=== PATIENT | male | born 1950 | race African-American/Black ===

== ENCOUNTER 2020-03-07 22:31 | Inpatient (IN) | payer MEDICARE, MEDICAID ==
[~2020-03-07 22:31] MED LIST: Iopamidol 370 76% 100 ML VIAL ONE
[2020-03-07] MEDS ORDERED: Naloxone HCl 0.4 mg/ml Vial ONE (22:41)
[2020-03-07] MEDS ORDERED: Lidocaine 1% w/Epinephrine 1:100K 20 ML VIAL ONE (22:56)
[2020-03-07 22:58] LABS: #Basophils 0.1 thou/uL (0.0-0.2); #Eosinphils 0.1 thou/uL (0.0-0.7); #Lymphocytes 3.7 thou/uL (1.20-3.40); #Monocytes 1.4 thou/uL (0.11-0.59); %Eosinophils 1.1 % (0.0-10.0); %Lymphocytes 35.9 % (21.0-51.0); %Monocytes 13.5 % (0.0-10.0); %Neutrophils 48.5 % (42.0-75.0); Hemoglobin 11.5 g/dL (14.0-18.0); Mean Corpuscular HGB CONC 31.3 g/dL (32.0-36.0); Mean Corpuscular Hemoglobin 31.6 pg (27.0-31.0); Mean Platelet Volume 8.2 fL (7.4-10.4); Platelet Count 156 thou/uL (130-400); RBC Distribution Width 13.3 % (11.5-14.5); Red Blood Cell (RBC) Count 3.65 mill/uL (4.70-6.10); White Blood Cell (WBC) Count 10.3 thou/uL (4.8-10.8)
[2020-03-07 23:07] LABS: Actual Bicarbonate (HCO3a) 27.9 mEq/L (22-28); Analyzer IN Cardio ER; Base Excess (BEa) -1.2 mEq/L (-2.0 to +3.0); Carboxyhemoglobin (COHb) 1.7 gm% (0.0-3.0); Hemoglobin (Hb) 11.3 g/dL (14.0-18.0); O2 Tension (PaO2), arterial 60.6 mmHg (> 80.0)
[2020-03-07 23:26] LABS: ALT (SGPT) 107 U/L (8-55); AST (SGOT) 108 U/L (5-34); Albumin 3.4 g/dL (3.4-4.8); Alkaline Phosphatase 122 U/L (40-110); Anion Gap 24 mmol/L (10-20); BUN (Urea Nitrogen) 17 mg/dL (8.4-25.7); Bilirubin, Total 0.4 mg/dL (0.2-1.2); CK (CPK) 290 U/L (30-200); Calc. Creatinine Clearance 0 mL/min (70-130); Carbon Dioxide 19 mmol/L (23-31); Chloride 103 mmol/L (98-107); Estimated GFR-MDRD Greater than 90; Globulin 3.2 g/dL (2.4-3.5); Glucose 144 mg/dL (80-115); Potassium 3.7 mmol/L (3.5-5.1); Protein, Total 6.6 g/dL (5.8-8.1); Sodium 142 mmol/L (136-145)
[2020-03-07] MEDS ORDERED: Norepinephrine 8 MG/0.9% NS 250 ML ONE (23:37)
[2020-03-07] MEDS ORDERED: Piperacillin/Tazobactam 3.375 GM VIAL ONE (23:37)
[2020-03-07] MEDS ORDERED: Vancomycin 1.5 GRAM/300 ML BAG 1.5 GM in Premix Bag 1 BAG IVPB SCH (23:59)
[2020-03-08 00:47] LABS: Bicarbonate (HCO3v) 23.3 mmol/L (22.0-28.0); CO2 Tension (PvCO2) 40.9 mmHg (40.0-50.0); Calcium, Ionized 0.88 mmol/L (See Comments:); Chloride 109 mmol/L (98-107); Hemoglobin - Calc 11.6 g/dL (14.0-18.0); Potassium 3.6 mmol/L (3.5-5.1); Sodium 144 mmol/L (138-145); T. Carbon Dioxide 24.6 mmol/L (22.0-28.0); vO2 Saturation-calc 74.7 % (60.0-85.0)
[2020-03-08 02:01] LABS: Lactic Acid 5.1 mmol/L (0.5-2.2)
[2020-03-08 02:14] LABS: SARS-CoV-2 NAA Rapid Test Not Detected (NotDetected)
[2020-03-08] MEDS ORDERED: Electrolyte Replacement Protoc 1 EACH EACH IVPB PRN (02:17)
[2020-03-08] MEDS ORDERED: Norepinephrine 8 MG/0.9% NS 250 ML IVPB PRN (02:17)
--- NOTE | 2020-03-08 02:28 | PDOC.HHP ---
Hospitalist HPI - History of Present Illness Altered mental status History of Present Illness: 69-year-old -[place] gentleman with a history of lung cancer was brought to the emergency department unresponsive, in acute respiratory distress and breathing bagged. Not much history is available at this time. No family members around to give any history. According to the ED physician, EMS was called to his house who found him in respiratory distress with agonal breathing. They started bagging him and brought him to the emergency department. According to the ED physician, patient is no CPR but at this time family wants medical treatment. Chest x-ray and CTA thorax done in the emergency department showed left pneumothorax. Patient was hypotensive and hypothermic. Chest tube was placed and patient put on BiPAP therapy. Warming blanket also placed on him. Blood work showed elevated lactic acid up to 4.0, troponin mildly elevated to 0.06 and elevated liver enzymes. Cause of patient's acute respiratory failure is unknown. CT chest demonstrates significant emphysema. Patient meets criteria for septic shock. He is currently on Levophed drip. He has been given broad-spectrum IV antibiotics. He was more responsive by the time I saw him in the ED. Patient is admitted to ICU for further management Hospitalist ROS - Review of Systems ROS unobtainable: due to mental status Hospitalist History - Past Medical History Heme/Onc: reports: Cancer (Lung) - Past Surgical History Other Surgical History: Unable to obtain - Family History Other Family History: Unable to obtain - Social History Other Social History: Unable to obtain - Exam General Appearance: ill appearing General - other findings: Cachectic Eye: PERRL, anicteric sclera ENT: normocephalic atraumatic, no oropharyngeal lesions ENT - other findings: BiPAP in place Neck: supple Neck - other findings: Engorged neck veins Heart: no murmur Heart - other findings: Tachycardic Respiratory - other findings: Diffuse bilateral crackles, diminished breath sound bilaterally. Gastrointestinal: soft, non-tender, non-distended, normal bowel sounds Extremities: no cyanosis, no edema Skin: tenting Neurological - other findings: Somnolent. He moves both upper extremities spontaneously. Psychiatric: somnolent Hospitalist Results - Labs Result Diagrams: 03/07/20 22:51 03/07/20 22:51 Lab results: WBC 10.3 thou/uL (4.8-10.8) 03/07/20 22:51 Hgb 11.5 g/dL (14.0-18.0) L 03/07/20 22:51 Hct 36.9 % (42.0-52.0) L 03/07/20 22:51 MCV 101.0 fL (78.0-98.0) H 03/07/20 22:51 Plt Count 156 thou/uL (130-400) 03/07/20 22:51 Neutrophils % 48.5 % (42.0-75.0) 03/07/20 22:51 VBG pCO2 40.9 mmHg (40.0-50.0) 03/07/20 23:20 VBG pO2 41.3 mmHg (35.0-45.0) 03/07/20 23:20 Sodium 142 mmol/L (136-145) 03/07/20 22:51 Potassium 3.7 mmol/L (3.5-5.1) 03/07/20 22:51 Chloride 103 mmol/L (98-107) 03/07/20 22:51 Carbon Dioxide 19 mmol/L (23-31) L 03/07/20 22:51 BUN 17 mg/dL (8.4-25.7) 03/07/20 22:51 Creatinine 0.87 mg/dL (0.7-1.3) 03/07/20 22:51 Glucose 144 mg/dL (80-115) H 03/07/20 22:51 Lactic Acid 5.1 mmol/L (0.5-2.2) H* 03/08/20 01:31 Calcium 8.0 mg/dL (7.8-10.44) 03/07/20 22:51 Total Bilirubin 0.4 mg/dL (0.2-1.2) 03/07/20 22:51 AST 108 U/L (5-34) H 03/07/20 22:51 ALT 107 U/L (8-55) H 03/07/20 22:51 Alkaline Phosphatase 122 U/L (40-110) H 03/07/20 22:51 Ammonia 28 umol/L (18-72) 03/08/20 00:49 Creatine Kinase 290 U/L (30-200) H 03/07/20 22:51 CK-MB (CK-2) 5.0 ng/mL (0-6.6) 03/08/20 00:49 Troponin I 0.060 ng/mL (< 0.028) H 03/08/20 00:49 Serum Total Protein 6.6 g/dL (5.8-8.1) 03/07/20 22:51 Albumin 3.4 g/dL (3.4-4.8) 03/07/20 22:51 - Radiology Interpretation CT scan - chest Status: image reviewed by me (Pneumothorax left lung.) Hospitalist H&P A/P - Problem (1) Acute respiratory failure with hypoxia Code(s): J96.01 - ACUTE RESPIRATORY FAILURE WITH HYPOXIA Status: Acute (2) Pneumothorax Code(s): J93.9 - PNEUMOTHORAX, UNSPECIFIED Status: Acute Assessment and Plan: Status post chest tube (3) Septic shock Code(s): A41.9 - SEPSIS, UNSPECIFIED ORGANISM; R65.21 - SEVERE SEPSIS WITH SEPTIC SHOCK Status: Acute Assessment and Plan: Unknown source (4) Lung cancer Code(s): C34.90 - MALIGNANT NEOPLASM OF UNSP PART OF UNSP BRONCHUS OR LUNG Status: Acute (5) Anemia Code(s): D64.9 - ANEMIA, UNSPECIFIED Status: Acute (6) Elevated liver enzymes Code(s): R74.8 - ABNORMAL LEVELS OF OTHER SERUM ENZYMES Status: Acute (7) Cachexia Code(s): R64 - CACHEXIA Status: Acute - Plan Plan: Admit to ICU. Poor prognosis. Patient is no CPR. Continue BiPAP therapy Consult cardiothoracic surgery for chest tube management Consult to pulmonary Scattered bronchodilators IV steroids. Broad-spectrum IV antibiotics-IV cefepime and vancomycin Continue Levophed drip IV hydration Follow blood cultures. Monitor BMP and CBC. Patient may need palliative care consultation along the line. Critical care is time spent was about 56 minutes. Could not obtain advanced directive due to altered mental status and no family member around to talk to.
[2020-03-08] MEDS ORDERED: Sodium Chloride 0.9% 1,000 ML IV SCH (02:30)
[2020-03-08 04:13] LABS: Troponin I 0.045 ng/mL (< 0.028)
[2020-03-08] MEDS: Cefepime 2 GM in Sodium Chloride 0.9% 100 ML IVPB SCH ×2 (04:19→14:11)
--- NOTE | 2020-03-08 07:32 | PDOC.HOSPP ---
- Subjective Encounter Date: 03/08/20 Encounter Time: 07:31 Subjective: responds to name, no appropriate answers to questions - Objective Vital Signs & Weight: Vital Signs (12 hours) Temp Pulse Resp Pulse Ox 03/08/20 06:23 100 03/08/20 05:02 122 H 26 H 100 03/08/20 05:01 123 H 26 H 100 03/08/20 03:51 100 03/08/20 03:04 102 H 25 H 100 03/08/20 03:00 97.9 F Weight Weight 106 lb 4.205 oz Most Recent Monitor Data Heart Rate from ECG 122 NIBP 93/63 NIBP BP-Mean 73 Respiration from ECG 18 SpO2 100 I&O: 03/07/20 03/08/20 03/09/20 06:59 06:59 06:59 Intake Total 329 Output Total 225 Balance 104 Result Diagrams: 03/07/20 22:51 03/07/20 22:51 Hospitalist ROS - Medication Medications: Active Medications Generic Name Dose Route Start Last Admin Trade Name Fcoq PRN Reason Stop Dose Admin Albuterol/Ipratropium 3 ml 03/08/20 07:00 03/08/20 05:01 Ipratropium/Albuterol Sulfate 3 Ml Neb NEB 3 ml [id number] LASHELL Administration Sodium Chloride 1,000 mls @ 75 mls/hr 03/08/20 02:30 03/08/20 06:15 Normal Saline 0.9% IV 1,000 mls .[id number] LASHELL Administration Cefepime HCl 2 gm/ Sodium 100 mls @ 200 mls/hr 03/08/20 03:00 03/08/20 04:19 Chloride IVPB 100 mls 0300,1500 LASHELL Administration - Exam Neck: no JVD Heart: RRR, no murmur Respiratory - other findings: C-tube on left, diffuse rhonchi, decreased BS Gastrointestinal: soft Extremities: no edema Hosp A/P (1) Encephalopathy acute Code(s): G93.40 - ENCEPHALOPATHY, UNSPECIFIED Status: Acute (2) Acute respiratory failure with hypoxia Code(s): J96.01 - ACUTE RESPIRATORY FAILURE WITH HYPOXIA Status: Acute (3) Lung cancer Code(s): C34.90 - MALIGNANT NEOPLASM OF UNSP PART OF UNSP BRONCHUS OR LUNG Status: Chronic Qualifiers: Laterality: unspecified laterality Lung location: unspecified part of lung Qualified Code(s): C34.90 - Malignant neoplasm of unspecified part of unspe cified bronchus or lung (4) Pneumothorax Code(s): J93.9 - PNEUMOTHORAX, UNSPECIFIED Status: Acute Qualifiers: Pneumothorax type: spontaneous, secondary Qualified Code(s): J93.12 - Secondary spontaneous pneumothorax - Plan cont Bipap' cont C-tube status is DNAR cont iv anyibx, cultures pending cont pressor cont brochodilators
[2020-03-08 07:33] LABS: Troponin I 0.049 ng/mL (< 0.028)
--- NOTE | 2020-03-08 07:37 | RAD ---
AP CHEST: Date: 03/07/2020 HISTORY: Difficulty breathing. COPD. No comparison. FINDINGS: There is a left pneumothorax, probably 50% range. There is partial atelectasis of the left mid lung w ith parenchymal opacities secondary to the atelectasis. The right lung appears aerated and clear. Heart size normal. There is a central line with a MediPort type catheter that appears adequately positioned. IMPRESSION: Left pneumothorax. Findings relayed to the emergency room physician at the time of dictation. CODE CR. POS: AGW
--- NOTE | 2020-03-08 07:55 | RAD ---
PORTABLE CHEST: Date: 03/07/2020 HISTORY: Chest tube placement. FINDINGS: Left chest tube has been placed. There has been reexpansion of the left lung with no significant resi dual pneumothorax. There is persistent focal density in the left perihilar region suggesting a mass or infiltrate. Patient has a MediPort catheter in place and there may be known neoplasm in this patient. Recommend c linical correlation. IMPRESSION: Reexpansion of the left lung. Focal density consistent with mass and/or infiltrate in the left perihi lar region. Recommend clinical correlation and follow-up chest CT as indicated. POS: ALICJA
--- NOTE | 2020-03-08 08:21 | CT ---
PRELIMINARY REPORT/[facility]/EMERGENCY AFTER HOURS PROCEDURE: EXAM: CT Head Without Intravenous Contrast. CLINICAL HISTORY: AMS; 62M DIFFICULTY BREATHING, AGONAL BREATHING ON SCENE O2 60%. PER FAMILY DNR IN PLACE BUT NO PAPER WORK AVAILABLE. HX OF CA. COMPARISON: None provided. FINDINGS: BRAIN: No acute intracranial hemorrhage, mass-effect, or midline shift. No CT evidence of acute infarct in a large vascular territory. Nonspecific white matter hypoattenuation suggesting chronic age-related small vessel changes. Atherosclerotic calcifications at the skull base. VENTRICLES: Prominent in size, suggesting age-related involution. SINUSES AND MASTOIDS: Trace thickening/fluid in the mastoid air cells. Minimal paranasal sinus mucosal thickening. IMPRESSION: No acute intracranial abnormality. ELECTRONICALLY SIGNED BY: Kennedy Romero MD Mar 08, 2020 12:48:58 AM CDT This report is intended for review by the ordering physician only, in accordance of law. If you recei ve this report in error, please call [facility] at [phone]. FINAL REPORT EMERGENCY AFTER HOURS CT BRAIN WITHOUT CONTRAST: FINDINGS/IMPRESSION: I agree with the preliminary report given by [facility]. POS: OFF
--- NOTE | 2020-03-08 08:49 | CT ---
PRELIMINARY REPORT/[facility]/EMERGENCY AFTER HOURS PROCEDURE: Receipt of this report by the clinical staff was confirmed with Kuldeep Alfredo MD by Anisha swenson on Mar 08, 2020 01:18:00 CDT. Addendum electronically signed by Anisha swenson on March 08, 2020 1:18:40 AM CDT EXAM: CTA Chest with Intravenous Contrast CLINICAL HISTORY: AMS; 62M DIFFICULTY BREATHING, AGONAL BREATHING ON SCENE O2 60%. PER FAMILY DNR IN PLACE BUT NO PAPERWORK AVAILABLE. HX OF CA. COMPARISON: None provided. FINDINGS: PULMONARY ARTERIES No filling defects in the pulmonary arteries to suggest acute pulmonary embolus, n oting significantly limited evaluation of the segmental and subsegmental branches due to suboptimal peripheral opacification. AORTA No thoracic aortic aneurysm or dissection. Moderate atherosclerotic calcifications. LUNGS Advanced emphysema. Mild scattered patchy airspace disease bilaterally. Moderate left perihilar peribronchial thickening. Right middle and lower lobe 4-8 mm pulmonary nodules. PLEURAL SPACES Small left apical pneumothorax with chest tube in place, which terminates in the poste rosuperior left pleural space medially. HEART AND MEDIASTINUM Normal cardiac size. Extensive coronary artery calcifications. Trace pericardia l fluid. LYMPH NODES No appreciable lymphadenopathy. BONES Mild thoracic spondylosis. CHEST WALL AND UPPER ABDOMEN Diffuse steatosis. Scattered left chest wall subcutaneous emphysema. Rig ht chest wall port catheter in place, terminating at the cavoatrial junction. IMPRESSION: 1. Small left apical pneumothorax with chest tube in place. 2. No evidence of pulmonary embolus. Significantly limited evaluation of the segmental/subsegmental b ranches. 3. Right middle and lower lobe 4-8 mm pulmonary nodules. See final report for nonemergent follow-up r ecommendations. ELECTRONICALLY SIGNED BY: Kennedy Romero MD Mar 08, 2020 1:14:59 AM CDT FINAL REPORT EMERGENCY AFTER HOURS STUDY: CT ANGIOGRAM THORAX WITH CONTRAST: (CTA pulmonary angiogram) DATE: 03/08/2020. TIME: 12:27 AM. HISTORY: 69-year-old male with dyspnea and hypoxemia. TECHNIQUE: IV injection of iodinated contrast. Scan acquisition timing attempted to coincide with iodinated contrast bolus reaching maximal density in pulmonary arteries. 3-D MIP reconstructions. FINDINGS: Several minor disagreements with preliminary report by [facility]. No major disagreement. IMPRESSION: 1) Nondiagnostic for pulmonary thromboembolism because of poor IV contrast timing bolus and scanning relative to pulmonary arteries. 2) Left hilar and perihilar mass extending into adjacent anterior segment of left upper lobe and supe rior segment of left lower lobe: Evidence for left lung cancer. 3) Small infiltrate with bronchiectasis in superior segment of right lower lobe. Exact etiology uncer tain but one possibility is organizing pneumonia. 4) Approximately 1 cm noncalcified irregularly-shaped superior segment right lower lobe pulmonary nod ule, and a spiculated 1.5 cm pulmonary nodule in the right middle lobe. These could be malignant neoplasms or infections. Numerous small tree-in-bud nodularities in the basilar segment left lower lobe suggestive of peribron chiolar inflammatory process. 5) Small left pneumothorax treated with chest tube. 6) Centrilobular emphysema. 7) Spiculated left apical segment upper lobe pulmonary lesion, scar versus malignancy. Transcribed Date/Time: 03/08/2020 9:25 AM
--- NOTE | 2020-03-08 10:16 | CON ---
DATE OF CONSULTATION: HISTORY OF PRESENT ILLNESS: Pepe Casper is a 69-year-old cachectic gentleman who was brought to the ER with respiratory distress. He was found to have a left-sided spontaneous pneumothorax. He normally seeks care at [facility] here locally as Dr. Morataya who takes care of him. He has end-stage COPD, lung cancer that in the past had some kind of surgical intervention. He was hypotensive in the ER, hypothermic with left-sided pneumothorax. A chest tube was inserted. I spoke to his at length. He is a DNR. He states on a good day, he can barely walk even 10 feet without getting short of breath. He is on oxygen 24 hours a day. He is cachectic. PAST MEDICAL HISTORY: COPD, lung cancer, Parkinson disease. PREVIOUS SURGERIES: Unknown, but some kind of surgery on his lung. CHRONIC MEDICATION: His is to bring the medication. REVIEW OF SYSTEMS: Otherwise, 10-point unremarkable. PHYSICAL EXAMINATION: GENERAL: He is awake, alert, responsive, in the ICU. VITAL SIGNS: Saturations 90% on BiPAP, pulse 113, blood pressure 166/97, respiratory rate 18. CHEST: Decreased breath sounds. No wheezing. CARDIAC: Normal S1 and S2. No gallops. ABDOMEN: No masses. LABORATORY DATA: Shows lactic acid 5. White count 10,000, H and H are 11 and 39, platelet count is normal. Chemistry profile shows BUN and creatinine are normal. Liver function elevated, AST 108, ALT 107. ASSESSMENT: 1. Marked cachexia. 2. Chronic obstructive pulmonary disease. 3. Lung cancer. 4. Spontaneous pneumothorax. PLAN: I agree with the DNR status. We are going to discontinue the BiPAP. If he is stable, can transfer to the medical floor. He is a DNR. His is going to bring all his list of medication in his medical care from [facility]. Pulmonary/Critical Care is going to follow. This is a consultation note, 70 minutes, 50% direct patient care. Job ID: [id number]
[2020-03-08] MEDS ORDERED: levETIRAcetam 500 mg/5 ml Oral Solution PO SCH (11:30)
[2020-03-08] MEDS: methylPREDNISolone Sod Succ 40 MG VIAL IVP SCH ×2 (12:22→18:29)
[2020-03-08] MEDS: Famotidine/PF 20 mg/2ml Vial SLOW IVP SCH ×2 (12:22→20:32)
[2020-03-08] MEDS: Vancomycin HCl 500 MG in Sodium Chloride 0.9% 100 ML IVPB SCH (14:12)
[2020-03-08] MEDS: Morphine 4 MG/ML VIAL SLOW IVP PRN (16:10)
[2020-03-08] MEDS: Multivitamins, Adult 10 ML, Folic Acid 1 MG, Thiamine HCl 100 MG in Dextrose 5 %-0.45 %... IV SCH (18:27)
[2020-03-08] MEDS: Mometasone 200 MCG/Formoterol 5 MCG 120 PUFF INHALER INH SCH (18:52)
[2020-03-08] MEDS: levETIRAcetam 500 mg/5 ml Oral Solution PO SCH (20:34)
[2020-03-08] MEDS ORDERED: FLU VACC QS2020-21(65YR UP)/PF 240 MCG/0.7 ML SYRINGE IM ONE (21:00)
[2020-03-08 23:24] LABS: CO2 Tension 71.6 mmHg (35.0-45.0); Puncture Site L RADIAL; pH, Arterial 7.21 (7.35-7.45)
--- NOTE | 2020-03-09 00:17 | CON ---
DATE OF CONSULTATION: HISTORY OF PRESENT ILLNESS: This is 69-year-old brought into the emergency room last night unresponsive with assisted ventilations. He was found to have a left-sided pneumothorax and a chest tube was placed by the emergency room physician with a good result. Past medical history is gleaned primarily from our records as the patient was on BiPAP this morning. 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 At the time of the diagnosis, the patient had poor followup due to being in and out of nursing home in different counties. In any event, he has been undergoing treatment at the local [facility] facility since that time with progression of disease. He has severe COPD with an FEV1 of 32% requiring home oxygen therapy. He is severely dyspneic with minimal activities and has been seen by Palliative Care at [facility]. PHYSICAL EXAMINATION: Today, he is on BiPAP. He has distant breath sounds bilaterally with rhonchi. His chest tube has minimal serous output and has no air leak. IMAGING: His chest x-ray shows resolution of his pneumothorax. PLAN: At this time is to monitor his chest tube for 2 to 3 days and if no air leak is present, we will proceed with removal of the tube. Job ID: [id number]
[2020-03-09] MEDS: methylPREDNISolone Sod Succ 40 MG VIAL IVP SCH ×5 (00:54→23:59)
[2020-03-09] MEDS: Vancomycin HCl 500 MG in Sodium Chloride 0.9% 100 ML IVPB SCH ×2 (01:13→13:48)
[2020-03-09] MEDS: Cefepime 2 GM in Sodium Chloride 0.9% 100 ML IVPB SCH ×2 (02:27→14:39)
[2020-03-09] MEDS: Morphine 4 MG/ML VIAL SLOW IVP PRN ×2 (02:27→17:59)
[2020-03-09 04:13] LABS: Band 25 % (5-11); Hemoglobin 9.9 g/dL (14.0-18.0); Hypochromia SLIGHT = 6-15 cells (100X) (0-5/hpf); Lymphocytes 6 % (21-51); MDiff Complete? YES; Mean Corpuscular HGB CONC 32.5 g/dL (32.0-36.0); Mean Corpuscular Hemoglobin 32.5 pg (27.0-31.0); Mean Corpuscular Volume 99.9 fL (78.0-98.0); Mean Platelet Volume 8.7 fL (7.4-10.4); Metamyelocyte 2 % (0-0); Neutrophil 67 % (42-75); Platelet Count 125 thou/uL (130-400); Platelet Morphology Comment Appears Adequate; Red Blood Cell (RBC) Count 3.04 mill/uL (4.70-6.10)
[2020-03-09 04:23] LABS: ALT (SGPT) 77 U/L (8-55); AST (SGOT) 47 U/L (5-34); Albumin 3.2 g/dL (3.4-4.8); Alkaline Phosphatase 95 U/L (40-110); Anion Gap 12 mmol/L (10-20); BUN (Urea Nitrogen) 11 mg/dL (8.4-25.7); Bilirubin, Total 0.4 mg/dL (0.2-1.2); Calc. Creatinine Clearance 69 mL/min (70-130); Calcium 8.7 mg/dL (7.8-10.44); Carbon Dioxide 29 mmol/L (23-31); Chloride 105 mmol/L (98-107); Estimated GFR-MDRD Greater than 90; Globulin 3.1 g/dL (2.4-3.5); Glucose 171 mg/dL (80-115); Potassium 3.4 mmol/L (3.5-5.1); Protein, Total 6.3 g/dL (5.8-8.1); Sodium 143 mmol/L (136-145)
[2020-03-09] MEDS ORDERED: Potassium Chloride 40 MEQ in Sodium Chloride 0.9% 250 ML 250 ML IVPB SCH (05:30)
[2020-03-09] MEDS: Mometasone 200 MCG/Formoterol 5 MCG 120 PUFF INHALER INH SCH ×2 (07:00→18:34)
--- NOTE | 2020-03-09 07:37 | PRG ---
DATE OF SERVICE: 03/09/2020 The patient is more awake this morning and can follow commands, then chest tube output is minimal serous. He has no air leak with a cough. His chest x-ray is pending. Hopefully, can discontinue his suction and remove his chest tube in the next day or two. Job ID: [id number]
[2020-03-09] MEDS: levETIRAcetam 500 mg/5 ml Oral Solution PO SCH ×2 (09:07→21:25)
[2020-03-09] MEDS: Famotidine/PF 20 mg/2ml Vial SLOW IVP SCH ×2 (09:08→21:25)
--- NOTE | 2020-03-09 09:26 | PRG ---
DATE OF SERVICE: 03/09/2020 SUBJECTIVE: This morning, he is awake, responsive. OBJECTIVE: VITAL SIGNS: Pulse 75, saturations 100% on 2 L, respiratory rate 17, blood pressure 139/92. CHEST: Decreased breath sounds, no wheezing. CARDIAC: Normal S1, S2. ABDOMEN: No masses. LABORATORY DATA: White count is unremarkable. Lytes are normal. His chest x-ray today shows a chest tube, left lung. ASSESSMENT: Pneumothorax, chronic obstructive pulmonary disease, lung cancer end-stage. PLAN: Pulmonary payne, continue supportive care. We can probably transfer out of the ICU. He is a DNR. Job ID: [id number]
--- NOTE | 2020-03-09 09:28 | RAD ---
RADIOGRAPH CHEST 1 VIEW: DATE: 03/09/2020 TIME: 9:10 AM HISTORY: 69-year-old male follow-up pneumothorax COMPARISON: 03/07/2020 FINDINGS: Hyperinflation consistent with COPD. Right-sided implantable vascular access port and left-sided ches t tube are unchanged in position. Left perihilar spiculated mass again noted. Small left apical pneumothorax has become smaller, currently approximately 5-15 % volume. No shift of midline structure s. No cardiomegaly. Interstitial densities at left base. No consolidation. No pulmonary edema. IMPRESSION: 1) mild interval decrease in size of now very small left pneumothorax. 2) emphysema 3) spiculated left perihilar mass for lung cancer.
--- NOTE | 2020-03-09 09:35 | PDOC.HOSPP ---
- Subjective Encounter Date: 03/09/20 Encounter Time: 09:33 Subjective: decreased sob, still O2 dependent - Objective Vital Signs & Weight: Vital Signs (12 hours) Temp Pulse Resp Pulse Ox 03/09/20 08:00 98.3 F 03/09/20 07:00 75 17 100 03/09/20 04:00 98.9 F 03/09/20 00:00 98.6 F Weight Weight 104 lb 7.986 oz Most Recent Monitor Data Heart Rate from ECG 82 NIBP 138/72 NIBP BP-Mean 94 Respiration from ECG 22 SpO2 99 I&O: 03/08/20 03/09/20 03/10/20 06:59 06:59 06:59 Intake Total 329 2040.2 Output Total 225 1625 335 Balance 104 415.2 -335 Result Diagrams: 03/09/20 03:30 03/09/20 03:29 Hospitalist ROS - Medication Medications: Active Medications Generic Name Dose Route Start Last Admin Trade Name Freq PRN Reason Stop Dose Admin Albuterol/Ipratropium 3 ml 03/08/20 11:00 03/09/20 07:00 Ipratropium/Albuterol Sulfate 3 Ml Neb NEB 3 ml [id number] LASHELL Administration Famotidine 20 mg 03/08/20 09:00 03/09/20 09:08 Famotidine/Pf 20 Mg/2ml Vial SLOW IVP 20 mg Q12HR LASHELL Administration Cefepime HCl 2 gm/ Sodium 100 mls @ 200 mls/hr 03/08/20 03:00 03/09/20 02:27 Chloride IVPB 100 mls 0300,1500 LASHELL Administration Vancomycin HCl 500 mg/ Sodium 100 mls @ 100 mls/hr 03/08/20 13:00 03/09/20 01:13 Chloride IVPB 100 mls 0100,1300 LASHELL Administration Multivitamins 10 ml/ Folic 1,011.2 mls @ 75 mls/hr 03/08/20 17:00 03/08/20 18:27 Acid 1 mg/ Thiamine HCl 100 mg IV 1,011.2 mls / Dextrose/Sodium Chloride Q24HR LASHELL Administration Dexmedetomidine HCl 400 mcg/ 100 mls @ 0 mls/hr 03/08/20 16:30 03/08/20 18:28 Sodium Chloride IVPB 100 mls INF LASHELL Administration Protocol Titrate Levetiracetam 500 mg 03/08/20 21:00 03/09/20 09:07 Levetiracetam 500 Mg/5 Ml Oral Solution PO 500 mg BID LASHELL Administration Methylprednisolone Sodium Succinate 40 mg 03/08/20 12:00 03/09/20 05:51 Methylprednisolone Sod Succ 40 Mg Vial IVP 40 mg Q6HR LASHELL Administration Mometasone Furoate/Formoterol Fumar 2 puff 03/08/20 18:30 03/09/20 07:00 Mometasone 200 Mcg/Formoterol 5 Mcg 120 Puff Inhaler INH 2 puff BID-RT LASHELL Administration Morphine Sulfate 4 mg 03/08/20 15:45 03/09/20 02:27 Morphine 4 Mg/Ml Vial SLOW IVP 4 mg Q4H PRN Administration Moderate Pain (4-6) Sodium Chloride 10 ml 03/08/20 09:00 03/09/20 09:08 Flush - Normal Saline 10 Ml Syringe IVF 10 ml Q12HR LASHELL Administration - Exam General Appearance: awake alert Neck: no JVD Heart: RRR, no murmur Respiratory - other findings: decreased BS on R, Decreased BS with rales on L. L chest tube Gastrointestinal: soft, non-tender, normal bowel sounds Extremities: no edema Hosp A/P (1) Encephalopathy acute Code(s): G93.40 - ENCEPHALOPATHY, UNSPECIFIED Status: Acute (2) Acute respiratory failure with hypoxia Code(s): J96.01 - ACUTE RESPIRATORY FAILURE WITH HYPOXIA Status: Acute (3) Lung cancer Code(s): C34.90 - MALIGNANT NEOPLASM OF UNSP PART OF UNSP BRONCHUS OR LUNG Status: Chronic Qualifiers: Laterality: unspecified laterality Lung location: unspecified part of lung Qualified Code(s): C34.90 - Malignant neoplasm of unspecified part of unspecified bronchus or lung (4) Pneumothorax Code(s): J93.9 - PNEUMOTHORAX, UNSPECIFIED Status: Acute Qualifiers: Pneumothorax type: spontaneous, secondary Qualified Code(s): J93.12 - Secondary spontaneous pneumothorax - Plan on NC O2 cont C-tube status is DNAR cont iv anytbx, cultures pending cont pressor prn cont brochodilators
[2020-03-09] MEDS: Vancomycin 1 GM in Premix Bag 1 BAG IVPB SCH (14:36)
--- NOTE | 2020-03-09 15:33 | PDOC.FMACP ---
Advance Care Planning - Problem (1) Palliative care encounter Status: Acute Code(s): Z51.5 - ENCOUNTER FOR PALLIATIVE CARE (2) Anemia Status: Acute Code(s): D64.9 - ANEMIA, UNSPECIFIED (3) Cachexia Status: Acute Code(s): R64 - CACHEXIA (4) Lung cancer Status: Chronic Code(s): C34.90 - MALIGNANT NEOPLASM OF UNSP PART OF UNSP BRONCHUS OR LUNG Qualifiers: Laterality: unspecified laterality Lung location: unspecified part of lung Qualified Code(s): C34.90 - Malignant neoplasm of unspecified part of unspecified bronchus or lung - Note Participants: patient, surrogate decision-maker, palliative care Summary: Revisited Advanced Care Planning. The diagnosis, prognosis and goals of care were discussed. Appropriate forms and documentation to accomplish the goals of care were discussed. All questions were answered. Patient completed the MPOA, original and copy given to the patient, copy placed on the chart for medical records. Confirmed DNAR status and patient previous OOHDNAR. Please also refer to notes in note section from Palliative Care. Time Spent (mins): 20
[2020-03-09] MEDS: Multivitamins, Adult 10 ML, Folic Acid 1 MG, Thiamine HCl 100 MG in Dextrose 5 %-0.45 %... IV SCH (21:48)
[2020-03-10] MEDS: Vancomycin 1 GM in Premix Bag 1 BAG IVPB SCH (02:57)
[2020-03-10] MEDS: Cefepime 2 GM in Sodium Chloride 0.9% 100 ML IVPB SCH (02:57)
[2020-03-10] MEDS: methylPREDNISolone Sod Succ 40 MG VIAL IVP SCH (05:12)
[2020-03-10 05:49] LABS: Band 15 % (5-11); Hemoglobin 9.6 g/dL (14.0-18.0); Lymphocytes 5 % (21-51); MDiff Complete? YES; Mean Corpuscular HGB CONC 32.7 g/dL (32.0-36.0); Mean Corpuscular Hemoglobin 32.2 pg (27.0-31.0); Mean Corpuscular Volume 98.6 fL (78.0-98.0); Mean Platelet Volume 9.2 fL (7.4-10.4); Monocytes 5 % (0-10); Neutrophil 75 % (42-75); Platelet Count 128 thou/uL (130-400); Platelet Morphology Comment Appears Adequate; RBC Distribution Width 13.1 % (11.5-14.5); Red Blood Cell (RBC) Count 2.98 mill/uL (4.70-6.10); White Blood Cell (WBC) Count 11.8 thou/uL (4.8-10.8)
[2020-03-10 05:53] LABS: ALT (SGPT) 66 U/L (8-55); AST (SGOT) 40 U/L (5-34); Albumin 3.2 g/dL (3.4-4.8); Alkaline Phosphatase 92 U/L (40-110); Anion Gap 14 mmol/L (10-20); BUN (Urea Nitrogen) 11 mg/dL (8.4-25.7); Bilirubin, Total 0.4 mg/dL (0.2-1.2); Calc. Creatinine Clearance 65 mL/min (70-130); Calcium 8.9 mg/dL (7.8-10.44); Carbon Dioxide 31 mmol/L (23-31); Chloride 99 mmol/L (98-107); Estimated GFR-MDRD Greater than 90; Glucose 181 mg/dL (80-115); Potassium 3.7 mmol/L (3.5-5.1); Protein, Total 6.2 g/dL (5.8-8.1); Sodium 140 mmol/L (136-145)
--- NOTE | 2020-03-10 07:07 | PRG ---
DATE OF SERVICE: 03/10/2020 Chest tube output was minimal. He has been off suction for 24 hours and chest x-ray this morning is pending. He does have a small bubble here and there with coughing, but at rest, no leakage. We will probably await chest x-ray, but may consider leaving the tube another day. Job ID: [id number]
[2020-03-10] MEDS: Mometasone 200 MCG/Formoterol 5 MCG 120 PUFF INHALER INH SCH ×2 (07:15→18:46)
[2020-03-10] MEDS: levETIRAcetam 500 mg/5 ml Oral Solution PO SCH ×2 (09:01→19:37)
[2020-03-10] MEDS: Famotidine/PF 20 mg/2ml Vial SLOW IVP SCH ×2 (09:01→19:37)
--- NOTE | 2020-03-10 10:37 | PDOC.HOSPP ---
- Subjective Encounter Date: 03/10/20 Encounter Time: 10:32 Subjective: comfortable. still has Chest tube in - Objective Vital Signs & Weight: Vital Signs (12 hours) Temp Pulse Resp BP BP Pulse Ox 03/10/20 09:06 99 03/10/20 07:57 97.7 F 83 20 152/77 H 99 03/10/20 07:17 71 20 100 03/10/20 04:07 100 03/10/20 04:00 98.5 F 82 18 160/78 H 99 03/10/20 00:00 98.2 F 80 18 148/74 H 100 Weight Admit Weight 106 lb Weight 100 lb Most Recent Monitor Data Heart Rate from ECG 89 NIBP 141/79 NIBP BP-Mean 99 Respiration from ECG 18 SpO2 100 I&O: 03/09/20 03/10/20 03/11/20 06:59 06:59 06:59 Intake Total 2040.2 920 Output Total 1625 1645 Balance 415.2 -725 Result Diagrams: 03/10/20 05:13 03/10/20 05:13 Hospitalist ROS - Medication Medications: Active Medications Generic Name Dose Route Start Last Admin Trade Name Freq PRN Reason Stop Dose Admin Albuterol/Ipratropium 3 ml 03/08/20 11:00 03/10/20 07:17 Ipratropium/Albuterol Sulfate 3 Ml Neb NEB 3 ml [id number] LASHELL Administration Famotidine 20 mg 03/08/20 09:00 03/10/20 09:01 Famotidine/Pf 20 Mg/2ml Vial SLOW IVP 20 mg Q12HR LASHELL Administration Multivitamins 10 ml/ Folic 1,011.2 mls @ 75 mls/hr 03/08/20 17:00 03/09/20 21:48 Acid 1 mg/ Thiamine HCl 100 mg IV Not Given / Dextrose/Sodium Chloride Q24HR LASHELL Levetiracetam 500 mg 03/08/20 21:00 03/10/20 09:01 Levetiracetam 500 Mg/5 Ml Oral Solution PO 500 mg BID LASHELL Administration Mometasone Furoate/Formoterol Fumar 2 puff 03/08/20 18:30 03/10/20 07:15 Mometasone 200 Mcg/Formoterol 5 Mcg 120 Puff Inhaler INH 2 puff BID-RT LASHELL Administration Morphine Sulfate 4 mg 03/08/20 15:45 03/09/20 17:59 Morphine 4 Mg/Ml Vial SLOW IVP 4 mg Q4H PRN Administration Moderate Pain (4-6) Sodium Chloride 10 ml 03/08/20 09:00 03/10/20 09:01 Flush - Normal Saline 10 Ml Syringe IVF 10 ml Q12HR LASHELL Administration - Exam General Appearance: awake alert Neck: no JVD Heart: RRR Respiratory - other findings: chest tube on right, decreased BS Gastrointestinal: soft, normal bowel sounds Extremities: no edema Hosp A/P (1) Encephalopathy acute Code(s): G93.40 - ENCEPHALOPATHY, UNSPECIFIED Status: Acute (2) Acute respiratory failure with hypoxia Code(s): J96.01 - ACUTE RESPIRATORY FAILURE WITH HYPOXIA Status: Acute (3) Lung cancer Code(s): C34.90 - MALIGNANT NEOPLASM OF UNSP PART OF UNSP BRONCHUS OR LUNG Status: Chronic Qualifiers: Laterality: unspecified laterality Lung location: unspecified part of lung Qualified Code(s): C34.90 - Malignant neoplasm of unspecified part of uns pecified bronchus or lung (4) Pneumothorax Code(s): J93.9 - PNEUMOTHORAX, UNSPECIFIED Status: Acute Qualifiers: Pneumothorax type: spontaneous, secondary Qualified Code(s): J93.12 - Secondary spontaneous pneumothorax - Plan on NC O2 cont C-tube status is DNAR cont iv anytbx, cultures pending cont pressor prn cont brochodilators CXR pending
--- NOTE | 2020-03-10 10:51 | PRG ---
DATE OF SERVICE: 03/10/2020 SUBJECTIVE: Pepe Casper this morning is a little bit more awake, responsive. OBJECTIVE: VITAL SIGNS: Temperature 97, pulse 80, blood pressure 142/77. CHEST: No wheezing, no crackles. CARDIAC: Normal S1, S2. No gallops. ABDOMEN: No masses. LABORATORY DATA: White blood cell count 1100, H and H 9 and 29, and platelet count is normal. X-ray pending. ASSESSMENT: Spontaneous pneumothorax, metastatic cancer, and cachexia. PLAN: Pulmonary payne, since he is eating, we will switch him over to oral antibiotics. Continue supportive care. PT. Eventually placement. Job ID: [id number]
--- NOTE | 2020-03-10 10:56 | PRG ---
DATE OF SERVICE: 03/10/2020 SUBJECTIVE: Pepe Casper is a 69-year-old gentleman. OBJECTIVE: GENERAL: This morning, he is awake, alert, responsive, sitting upright in bed. VITAL SIGNS: Sats 90% to 99% on 2 L, temperature 97, pulse 80, respirations 20, and blood pressure 150/77. CHEST: No wheezing, no crackles. HEART: Normal S1, S2. No gallops. ABDOMEN: No masses. LABORATORY DATA: White blood cell count 1100, H and H 9 and 29, platelet count is 28. ASSESSMENT: Spontaneous pneumothorax, chronic obstructive pulmonary disease, and lung cancer. PLAN: We will switch him over to oral medication. Hopefully, once the chest tube was removed, he can be discharged to home for comfort care measures. Job ID: [id number]
--- NOTE | 2020-03-10 14:33 | RAD ---
RADIOGRAPH CHEST 1 VIEW: DATE: 03/10/2020 TIME: 4:28 AM This study was canceled, and therefore did not get dictated until it was resubmitted for in the after noon of 03/10/2020 HISTORY: Left-sided pneumothorax COMPARISON: 03/09/2020 FINDINGS: There has been no interval change. IMPRESSION: 1) no interval change. 2) small left pneumothorax. 3) left-sided chest tube remains. 4) spiculated left perihilar mass suspicious for lung cancer.
[2020-03-10] MEDS: Multivitamins, Adult 10 ML, Folic Acid 1 MG, Thiamine HCl 100 MG in Dextrose 5 %-0.45 %... IV SCH (18:11)
[2020-03-10] MEDS: Morphine 4 MG/ML VIAL SLOW IVP PRN (19:36)
[2020-03-11] MEDS: Morphine 4 MG/ML VIAL SLOW IVP PRN ×3 (05:30→15:27)
[2020-03-11 06:54] LABS: ALT (SGPT) 83 U/L (8-55); AST (SGOT) 80 U/L (5-34); Albumin 3.2 g/dL (3.4-4.8); Alkaline Phosphatase 97 U/L (40-110); Anion Gap 10 mmol/L (10-20); BUN (Urea Nitrogen) 10 mg/dL (8.4-25.7); Bilirubin, Total 0.4 mg/dL (0.2-1.2); Calc. Creatinine Clearance 68 mL/min (70-130); Calcium 8.9 mg/dL (7.8-10.44); Carbon Dioxide 35 mmol/L (23-31); Chloride 97 mmol/L (98-107); Estimated GFR-MDRD Greater than 90; Glucose 131 mg/dL (80-115); Potassium 3.3 mmol/L (3.5-5.1); Protein, Total 6.2 g/dL (5.8-8.1); Sodium 139 mmol/L (136-145)
[2020-03-11 07:10] LABS: Hemoglobin 11.4 g/dL (14.0-18.0); Mean Corpuscular HGB CONC 31.6 g/dL (32.0-36.0); Mean Corpuscular Hemoglobin 31.6 pg (27.0-31.0); Mean Platelet Volume 8.8 fL (7.4-10.4); Platelet Count 128 thou/uL (130-400); RBC Distribution Width 13.2 % (11.5-14.5); Red Blood Cell (RBC) Count 3.59 mill/uL (4.70-6.10); White Blood Cell (WBC) Count 8.4 thou/uL (4.8-10.8)
[2020-03-11 07:28] LABS: Band 2 % (5-11); Hypochromia SLIGHT = 6-15 cells (100X) (0-5/hpf); Lymphocytes 14 % (21-51); MDiff Complete? YES; Monocytes 6 % (0-10); Neutrophil 78 % (42-75); Platelet Morphology Comment Appears Decreased; Target Cells SLIGHT = 2-5 cells (100X) (0-1/hpf)
[2020-03-11] MEDS: Mometasone 200 MCG/Formoterol 5 MCG 120 PUFF INHALER INH SCH ×2 (07:40→18:52)
--- NOTE | 2020-03-11 07:54 | RAD ---
CHEST 1 VIEW: Date: 03/11/2020 INDICATION: History of chest tube placement. COMPARISON: Prior exam dated 03/10/2020. FINDINGS: Left-sided thoracostomy tube is unchanged in position. Scarring within the left upper lobe with left suprahilar opacity is stable. Tiny left apical pneumothorax persists. Right lung remains clear. Right chest wall port is unchanged. IMPRESSION: Stable small left apical pneumothorax and left-sided thoracostomy tube. Scar-like opacity of the left suprahilar region is stable. COPD change of the right lung is stable. POS: BH
[2020-03-11] MEDS: predniSONE 20 MG TAB PO SCH (09:25)
[2020-03-11] MEDS: Famotidine/PF 20 mg/2ml Vial SLOW IVP SCH ×2 (09:25→21:30)
[2020-03-11] MEDS: levETIRAcetam 500 mg/5 ml Oral Solution PO SCH ×2 (09:25→21:30)
--- NOTE | 2020-03-11 10:48 | PRG ---
DATE OF SERVICE: 03/11/2020 SUBJECTIVE: Cachectic gentleman. Chest tube in place. Still got some air leak it appears. OBJECTIVE: VITAL SIGNS: Temperature 96, pulse 86, saturations 100%, and blood pressure 120/73. CHEST: Decreased breath sounds, left lung. CARDIAC: Normal S1 and S2. No masses. Spontaneous pneumothorax, metastatic CA. PLAN: Continue present treatment. Hopefully, once the CT is removed, he could be discharged home under hospice care. Job ID: [id number]
--- NOTE | 2020-03-11 12:20 | PRG ---
DATE OF SERVICE: 03/11/2020 SUBJECTIVE: The patient was put back on suction yesterday after a small pneumothorax in the subpulmonic area and apically with associated small air leak. This morning he again demonstrated some air leak on suction when he coughed. His output has been minimal and his chest x-ray really looks about the same as yesterday with no major changes. If the patient is going to be on hospice, consideration could be given to sending him home with a chest tube and Heimlich valve rather than keeping in the hospital until his air leak ceases and he could be followed up as an outpatient or by hospice. Job ID: [id number] MTDD
--- NOTE | 2020-03-11 12:58 | PDOC.HOSPP ---
- Subjective Encounter Date: 03/11/20 Encounter Time: 12:58 Subjective: discomfrt at C-tube site, O/W no C/O - Objective Vital Signs & Weight: Vital Signs (12 hours) Temp Pulse Resp BP Pulse Ox 03/11/20 12:06 97.8 F 80 18 134/83 100 03/11/20 10:13 75 16 97 03/11/20 09:25 100 03/11/20 08:08 96.7 F L 86 121/73 100 03/11/20 07:40 98 03/11/20 07:35 84 16 98 Weight Admit Weight 106 lb Weight 99 lb 10.383 oz Most Recent Monitor Data Heart Rate from ECG 89 NIBP 141/79 NIBP BP-Mean 99 Respiration from ECG 18 SpO2 100 I&O: 03/10/20 03/11/20 03/12/20 06:59 06:59 06:59 Intake Total 920 1650 Output Total 1645 1100 Balance -725 550 Result Diagrams: 03/11/20 05:30 03/11/20 05:45 Hospitalist ROS - Medication Medications: Active Medications Generic Name Dose Route Start Last Admin Trade Name Freq PRN Reason Stop Dose Admin Albuterol/Ipratropium 3 ml 03/08/20 11:00 03/11/20 10:13 Ipratropium/Albuterol Sulfate 3 Ml Neb NEB 3 ml [id number] LASHELL Administration Famotidine 20 mg 03/08/20 09:00 03/11/20 09:25 Famotidine/Pf 20 Mg/2ml Vial SLOW IVP 20 mg Q12HR LASHELL Administration Multivitamins 10 ml/ Folic 1,011.2 mls @ 75 mls/hr 03/08/20 17:00 03/10/20 18:11 Acid 1 mg/ Thiamine HCl 100 mg IV 1,011.2 mls / Dextrose/Sodium Chloride Q24HR LASHELL Administration Levetiracetam 500 mg 03/08/20 21:00 03/11/20 09:25 Levetiracetam 500 Mg/5 Ml Oral Solution PO 500 mg BID LASHELL Administration Levofloxacin 500 mg 03/11/20 06:00 03/11/20 06:19 Levofloxacin 500 Mg Tab PO 03/16/20 06:01 500 mg 0600 LASHELL Administration Mometasone Furoate/Formoterol Fumar 2 puff 03/08/20 18:30 03/11/20 07:40 Mometasone 200 Mcg/Formoterol 5 Mcg 120 Puff Inhaler INH 2 puff BID-RT LASHELL Administration Morphine Sulfate 4 mg 03/08/20 15:45 03/11/20 10:59 Morphine 4 Mg/Ml Vial SLOW IVP 4 mg Q4H PRN Administration Moderate Pain (4-6) Prednisone 20 mg 03/11/20 08:00 03/11/20 09:25 Prednisone 20 Mg Tab PO 20 mg QAM-WM LASHELL Administration Sodium Chloride 10 ml 03/08/20 09:00 03/11/20 09:25 Flush - Normal Saline 10 Ml Syringe IVF 10 ml Q12HR LASHELL Administration - Exam General Appearance: awake alert Neck: no JVD Heart: RRR, no murmur Respiratory - other findings: decreased BS, C-tube on left Gastrointestinal: soft, normal bowel sounds Extremities: no edema Hosp A/P (1) Encephalopathy acute Code(s): G93.40 - ENCEPHALOPATHY, UNSPECIFIED Status: Acute (2) Acute respiratory failure with hypoxia Code(s): J96.01 - ACUTE RESPIRATORY FAILURE WITH HYPOXIA Status: Acute (3) Lung cancer Code(s): C34.90 - MALIGNANT NEOPLASM OF UNSP PART OF UNSP BRONCHUS OR LUNG Status: Chronic Qualifiers: Laterality: unspecified laterality Lung location: unspecified part of lung Qualified Code(s): C34.90 - Malignant neoplasm of unspecified part of unspecified bronchus or lung (4) Pneumothorax Code(s): J93.9 - PNEUMOTHORAX, UNSPECIFIED Status: Acute Qualifiers: Pneumothorax type: spontaneous, secondary Qualified Code(s): J93.12 - Secondary spontaneous pneumothorax - Plan on [place] O2 cont C-tube status is DNAR C- tube still demonstates leak, not on hospice, will need in-patient care til leak seals
[2020-03-11] MEDS: Multivitamins, Adult 10 ML, Folic Acid 1 MG, Thiamine HCl 100 MG in Dextrose 5 %-0.45 %... IV SCH (18:18)
[2020-03-12] MEDS: Morphine 4 MG/ML VIAL SLOW IVP PRN ×4 (06:13→22:48)
[2020-03-12 06:26] LABS: Hemoglobin 10.9 g/dL (14.0-18.0); Mean Corpuscular HGB CONC 32.6 g/dL (32.0-36.0); Mean Corpuscular Hemoglobin 32.3 pg (27.0-31.0); Mean Corpuscular Volume 99.3 fL (78.0-98.0); Mean Platelet Volume 8.6 fL (7.4-10.4); Platelet Count 118 thou/uL (130-400); RBC Distribution Width 12.9 % (11.5-14.5); Red Blood Cell (RBC) Count 3.37 mill/uL (4.70-6.10)
[2020-03-12 06:36] LABS: Band 2 % (5-11); Lymphocytes 19 % (21-51); MDiff Complete? YES; Monocytes 10 % (0-10); Myelocyte 1 % (0-0); Neutrophil 68 % (42-75)
[2020-03-12 06:42] LABS: ALT (SGPT) 63 U/L (8-55); AST (SGOT) 37 U/L (5-34); Alkaline Phosphatase 89 U/L (40-110); BUN (Urea Nitrogen) 8 mg/dL (8.4-25.7); Bilirubin, Total 0.4 mg/dL (0.2-1.2); Calc. Creatinine Clearance 69 mL/min (70-130); Calcium 9.1 mg/dL (7.8-10.44); Estimated GFR-MDRD Greater than 90; Globulin 3.2 g/dL (2.4-3.5); Glucose 118 mg/dL (80-115); Protein, Total 6.2 g/dL (5.8-8.1)
[2020-03-12 06:51] LABS: Anion Gap 13 mmol/L (10-20); Carbon Dioxide 33 mmol/L (23-31); Chloride 95 mmol/L (98-107); Potassium 3.4 mmol/L (3.5-5.1); Sodium 138 mmol/L (136-145)
[2020-03-12] MEDS: Mometasone 200 MCG/Formoterol 5 MCG 120 PUFF INHALER INH SCH ×2 (06:51→18:33)
--- NOTE | 2020-03-12 07:14 | PRG ---
DATE OF SERVICE: The patient demonstrates a very few bubbles with cough, but otherwise his x-ray looks good today. We will try him off suction again today. It appears that the patient will not be able to go home with a Heimlich valve with hospice, so he may be here until his air leak ceases. Job ID: [id number]
[2020-03-12] MEDS ORDERED: Potassium Chloride 20 MEQ TAB PO SCH (07:15)
[2020-03-12] MEDS: predniSONE 20 MG TAB PO SCH (08:23)
[2020-03-12] MEDS: levETIRAcetam 500 mg/5 ml Oral Solution PO SCH ×2 (09:48→22:48)
[2020-03-12] MEDS: Famotidine/PF 20 mg/2ml Vial SLOW IVP SCH ×2 (09:48→22:49)
--- NOTE | 2020-03-12 10:45 | RAD ---
PORTABLE CHEST: HISTORY: Followup pneumothorax. FINDINGS: The parenchymal changes extending from the left hilar region are stable. There is a persistent left- sided pneumothorax noted. Right-sided MediPort catheter is unchanged. Left-sided chest tube is unch anged in position. IMPRESSION: Persistent small left-sided pneumothorax. POS: YARELI
--- NOTE | 2020-03-12 11:19 | PRG ---
DATE OF SERVICE: 03/12/2020 SUBJECTIVE: This morning, he is awake, alert, and responsive. OBJECTIVE: VITAL SIGNS: Temperature 97, pulse 86, respirations 16, saturations 99% on 2 L, blood pressure . CHEST: Decreased breath sounds in right lung, left lung unremarkable. CARDIAC: Normal S1 and S2. No gallops. ABDOMEN: No masses. ASSESSMENT AND PLAN: Metastatic bronchogenic carcinoma, left pneumothorax. Chest tube in place. He is a DNR. He still got an air leak. Dr. Arredondo will leave the chest tube in place for a while. Continue supportive care. Job ID: [id number]
[2020-03-12] MEDS ORDERED: Magnesium 2 GM/50 ML 2 GM in Premix Bag 1 BAG IVPB SCH (12:30)
[2020-03-12] MEDS: Multivitamins, Adult 10 ML, Folic Acid 1 MG, Thiamine HCl 100 MG in Dextrose 5 %-0.45 %... IV SCH (18:24)
--- NOTE | 2020-03-12 20:15 | PDOC.HOSPP ---
- Subjective Encounter Date: 03/12/20 Encounter Time: 20:15 Subjective: Patient seen and examined for respiratory failure with pneumothorax. Denies any new complaints. Feels generally weak. No new shortness of breath. Mild dry cough. - Objective Vital Signs & Weight: Vital Signs (12 hours) Temp Pulse Resp BP Pulse Ox 03/12/20 20:00 97.0 F L 87 18 121/69 100 03/12/20 18:32 87 16 100 03/12/20 16:05 97.6 F 91 18 104/65 95 03/12/20 13:52 79 18 100 03/12/20 11:37 97.2 F L 86 18 127/69 100 03/12/20 10:36 86 16 99 03/12/20 09:50 99 Weight Admit Weight 106 lb Weight 99 lb 13.91 oz Most Recent Monitor Data Heart Rate from ECG 89 NIBP 141/79 NIBP BP-Mean 99 Respiration from ECG 18 SpO2 100 I&O: 03/11/20 03/12/20 03/13/20 06:59 06:59 06:59 Intake Total 1650 1555 Output Total 1100 825 450 Balance 550 730 -450 Result Diagrams: 03/13/20 05:45 03/13/20 05:45 Additional Labs: 03/12/20 05:58: RBC 3.37 L, Hgb 10.9 L, Hct 33.5 L, MCV 99.3 H, MCH 32.3 H, Plt Count 118 L, Band Neuts % (Manual) 2 L, Lymphocytes % (Manual) 19 L, Myelocytes % 1 H 03/12/20 05:58: Potassium 3.4 L, Chloride 95 L, Carbon Dioxide 33 H, BUN 8 L, Creatinine 0.67 L, AST 37 H, ALT 63 H, Albumin 3.0 L, Albumin/Globulin Ratio 0.9 L 03/13/20 05:45: RBC 3.15 L, Hgb 10.3 L, Hct 31.2 L, MCV 99.0 H, MCH 32.6 H, Plt Count 124 L, Band Neuts % (Manual) 3 L, Myelocytes % 1 H 03/13/20 05:45: Potassium 3.4 L, Chloride 96 L, Carbon Dioxide 34 H, Creatinine 0.61 L, AST 42 H, ALT 59 H, Serum Total Protein 5.7 L, Albumin 2.9 L, A lbumin/Globulin Ratio 1.0 L Microbiology - Entire Visit 03/07/20 23:42 Venous blood - Neck Blood Culture - Preliminary NO GROWTH AT 48 HOURS 03/07/20 23:42 Venous blood - Neck Blood Culture - Preliminary NO GROWTH AT 48 HOURS Radiology Reviewed by me: Yes (Chest x-ray reviewed) Hospitalist ROS - Review of Systems Constitutional: reports: weakness, malaise. denies: fever, chills, sweats, other Gastrointestinal: denies: nausea, vomiting, abdominal pain, diarrhea, constipation, melena, hematochezia, other - Medication Medications: Active Medications Generic Name Dose Route Start Last Admin Trade Name Freq PRN Reason Stop Dose Admin Albuterol/Ipratropium 3 ml 03/08/20 11:00 03/12/20 18:32 Ipratropium/Albuterol Sulfate 3 Ml Neb NEB 3 ml [id number] LASHELL Administration Famotidine 20 mg 03/08/20 09:00 03/12/20 09:48 Famotidine/Pf 20 Mg/2ml Vial SLOW IVP 20 mg Q12HR LASHELL Administration Multivitamins 10 ml/ Folic 1,011.2 mls @ 75 mls/hr 03/08/20 17:00 03/12/20 18:24 Acid 1 mg/ Thiamine HCl 100 mg IV 1,011.2 mls / Dextrose/Sodium Chloride Q24HR LASHELL Administration Levetiracetam 500 mg 03/08/20 21:00 03/12/20 09:48 Levetiracetam 500 Mg/5 Ml Oral Solution PO 500 mg BID LASHELL Administration Levofloxacin 500 mg 03/11/20 06:00 03/12/20 06:11 Levofloxacin 500 Mg Tab PO 03/16/20 06:01 500 mg 0600 LASHELL Administration Mometasone Furoate/Formoterol Fumar 2 puff 03/08/20 18:30 03/12/20 18:33 Mometasone 200 Mcg/Formoterol 5 Mcg 120 Puff Inhaler INH 2 puff BID-RT LASHELL Administration Morphine Sulfate 4 mg 03/08/20 15:45 03/12/20 17:47 Morphine 4 Mg/Ml Vial SLOW IVP 4 mg Q4H PRN Administration Moderate Pain (4-6) Prednisone 20 mg 03/11/20 08:00 03/12/20 08:23 Prednisone 20 Mg Tab PO 20 mg QAM-WM LASHELL Administration Sodium Chloride 10 ml 03/08/20 09:00 03/12/20 09:48 Flush - Normal Saline 10 Ml Syringe IVF 10 ml Q12HR LASHELL Administration - Exam General Appearance: ill appearing Neck: supple, no JVD Heart: RRR, no gallops Respiratory: rhonchi, tachypneic Gastrointestinal: soft, no guarding, no rigidity Extremities: no cyanosis, no clubbing Neurological: no new deficit Musculoskeletal: generalized weakness Psychiatric: normal affect, A&O x 3 Hosp A/P (1) Acute on chronic respiratory failure with hypoxia and hypercapnia Code(s): J96.21 - ACUTE AND CHRONIC RESPIRATORY FAILURE WITH HYPOXIA; J96.22 - ACUTE AND CHRONIC RESPIRATORY FAILURE WITH HYPERCAPNIA Status: Acute (2) Pneumothorax Code(s): J93.9 - PNEUMOTHORAX, UNSPECIFIED Status: Acute (3) Electrolyte abnormality Code(s): E87.8 - OTH DISORDERS OF ELECTROLYTE AND FLUID BALANCE, NEC Status: Acute (4) Severe protein-calorie malnutrition Code(s): E43 - UNSPECIFIED SEVERE PROTEIN-CALORIE MALNUTRITION Status: Chronic (5) Cachexia Code(s): R64 - CACHEXIA Status: Chronic (6) Lung cancer Code(s): C34.90 - MALIGNANT NEOPLASM OF UNSP PART OF UNSP BRONCHUS OR LUNG Status: Chronic (7) COPD (chronic obstructive pulmonary disease) Status: Chronic (8) Shock, unspecified Code(s): R57.9 - SHOCK, UNSPECIFIED Status: Resolved (9) Toxic metabolic encephalopathy Code(s): G92 - TOXIC ENCEPHALOPATHY Status: Resolved - Plan 03/12 Continue supportive care. Continue chest tube. Continue nebulizer treatment. Replace electrolytes. Continue antibiotics. Continue prednisone. A.m. labs. Discontinue Romo catheter in a.m. Continue other medications as above.
[2020-03-13] MEDS: Morphine 4 MG/ML VIAL SLOW IVP PRN ×2 (06:21→17:17)
[2020-03-13 06:26] LABS: Band 3 % (5-11); Eosinophils 2 % (0-10); Hemoglobin 10.3 g/dL (14.0-18.0); Lymphocytes 22 % (21-51); MDiff Complete? YES; Mean Corpuscular HGB CONC 32.9 g/dL (32.0-36.0); Mean Corpuscular Hemoglobin 32.6 pg (27.0-31.0); Mean Platelet Volume 8.7 fL (7.4-10.4); Monocytes 4 % (0-10); Myelocyte 1 % (0-0); Neutrophil 68 % (42-75); Platelet Count 124 thou/uL (130-400); Red Blood Cell (RBC) Count 3.15 mill/uL (4.70-6.10); White Blood Cell (WBC) Count 5.2 thou/uL (4.8-10.8)
[2020-03-13 06:27] LABS: Phosphorus 3.2 mg/dL (2.3-4.7)
[2020-03-13 06:36] LABS: ALT (SGPT) 59 U/L (8-55); AST (SGOT) 42 U/L (5-34); Albumin 2.9 g/dL (3.4-4.8); Alkaline Phosphatase 76 U/L (40-110); Anion Gap 12 mmol/L (10-20); BUN (Urea Nitrogen) 9 mg/dL (8.4-25.7); Bilirubin, Total 0.3 mg/dL (0.2-1.2); Calc. Creatinine Clearance 75 mL/min (70-130); Calcium 8.5 mg/dL (7.8-10.44); Carbon Dioxide 34 mmol/L (23-31); Chloride 96 mmol/L (98-107); Estimated GFR-MDRD Greater than 90; Globulin 2.8 g/dL (2.4-3.5); Glucose 104 mg/dL (80-115); Magnesium 1.9 mg/dL (1.6-2.6); Potassium 3.4 mmol/L (3.5-5.1); Protein, Total 5.7 g/dL (5.8-8.1); Sodium 139 mmol/L (136-145)
--- NOTE | 2020-03-13 07:37 | RAD ---
Chest one view HISTORY: Chest tube. Pneumothorax. Follow-up. COMPARISON: 03/12/2020. FINDINGS: Cardiac silhouette is magnified by projection. Pulmonary vasculature are unremarkable. Mediastinum is midline. Left thoracostomy tube remains in place with mass and spiculated scarring at the left suprahilar level. Very small amount of pleural gas at the superior aspect of the left hemithorax similar in appearance to the previous exam. Right lung remains hyperinflated. Right sided Mediport in place. IMPRESSION : Small left apical pneumothorax and other findings are stable.
[2020-03-13] MEDS ORDERED: Magnesium 2 GM/50 ML 2 GM in Premix Bag 1 BAG IVPB SCH (07:45)
[2020-03-13] MEDS ORDERED: Potassium Chloride 20 MEQ TAB PO SCH (07:45)
[2020-03-13] MEDS: Mometasone 200 MCG/Formoterol 5 MCG 120 PUFF INHALER INH SCH ×2 (08:17→18:45)
[2020-03-13] MEDS: predniSONE 20 MG TAB PO SCH (08:58)
[2020-03-13] MEDS: Famotidine/PF 20 mg/2ml Vial SLOW IVP SCH (08:58)
[2020-03-13] MEDS: levETIRAcetam 500 mg/5 ml Oral Solution PO SCH ×2 (08:58→20:35)
--- NOTE | 2020-03-13 11:54 | PRG ---
DATE OF SERVICE: 03/13/2020 SUBJECTIVE: Pepe Casper this morning is awake, responsive. His lab is unremarkable. daily lab, which I would discontinue. OBJECTIVE: VITAL SIGNS: His temperature 97, pulse 79, sats are 97% on 2 L, and blood pressure . CHEST: No wheezing. No crackles. CARDIAC: Normal S1 and S2. No gallops. ABDOMEN: No masses. IMPRESSION: Respiratory failure, chronic obstructive pulmonary disease, encephalopathy with spontaneous pneumothorax, metastatic cancer. PLAN: I would stop all his daily lab. He is a DNR. Comfort care. Unfortunately, he still is requiring chest tube because of air leak. In the meantime, [facility] treatments. Job ID: [id number]
[2020-03-13] MEDS ORDERED: Polyethylene Glycol 3350 17 GM Packet PO PRN (17:16)
--- NOTE | 2020-03-13 17:17 | PDOC.HOSPP ---
- Subjective Encounter Date: 03/13/20 Encounter Time: 10:30 Subjective: Patient seen and examined for respiratory failure with pneumothorax. No new complaints. No chest pain or shortness of breath. - Objective Vital Signs & Weight: Vital Signs (12 hours) Temp Pulse Resp BP Pulse Ox 03/13/20 15:36 97.8 F 91 19 128/64 100 03/13/20 14:32 77 16 98 03/13/20 11:47 98.6 F 75 18 113/69 98 03/13/20 11:06 78 20 97 03/13/20 08:14 76 18 100 03/13/20 08:00 100 03/13/20 07:22 97.8 F 79 18 131/69 97 Weight Admit Weight 106 lb Weight 99 lb 13.91 oz Most Recent Monitor Data Heart Rate from ECG 89 NIBP 141/79 NIBP BP-Mean 99 Respiration from ECG 18 SpO2 100 I&O: 03/12/20 03/13/20 03/14/20 06:59 06:59 06:59 Intake Total 1555 Output Total 825 1700 Balance 730 -1700 Result Diagrams: 03/13/20 05:45 03/13/20 05:45 Radiology Reviewed by me: Yes (Chest x-raysmall left apical pneumothorax) Hospitalist ROS - Review of Systems Gastrointestinal: denies: nausea, vomiting, abdominal pain, diarrhea, constipation, melena, hematochezia, other Genitourinary: denies: dysuria, frequency, incontinence, hematuria, retention, other - Medication Medications: Active Medications Generic Name Dose Route Start Last Admin Trade Name Freq PRN Reason Stop Dose Admin Albuterol/Ipratropium 3 ml 03/08/20 11:00 03/13/20 14:32 Ipratropium/Albuterol Sulfate 3 Ml Neb NEB 3 ml [id number] LASHELL Administration Famotidine 20 mg 03/08/20 09:00 03/13/20 08:58 Famotidine/Pf 20 Mg/2ml Vial SLOW IVP 20 mg Q12HR LASHELL Administration Multivitamins 10 ml/ Folic 1,011.2 mls @ 75 mls/hr 03/08/20 17:00 03/12/20 18:24 Acid 1 mg/ Thiamine HCl 100 mg IV 1,011.2 mls / Dextrose/Sodium Chloride Q24HR LASHELL Administration Levetiracetam 500 mg 03/08/20 21:00 03/13/20 08:58 Levetiracetam 500 Mg/5 Ml Oral Solution PO 500 mg BID LASHELL Administration Levofloxacin 500 mg 03/11/20 06:00 03/13/20 06:20 Levofloxacin 500 Mg Tab PO 03/16/20 06:01 500 mg 0600 LASHELL Administration Mometasone Furoate/Formoterol Fumar 2 puff 03/08/20 18:30 03/13/20 08:17 Mometasone 200 Mcg/Formoterol 5 Mcg 120 Puff Inhaler INH 2 puff BID-RT LASHELL Administration Morphine Sulfate 4 mg 03/08/20 15:45 03/13/20 06:21 Morphine 4 Mg/Ml Vial SLOW IVP 4 mg Q4H PRN Administration Moderate Pain (4-6) Prednisone 20 mg 03/11/20 08:00 03/13/20 08:58 Prednisone 20 Mg Tab PO 20 mg QAM-WM LASHELL Administration Sodium Chloride 10 ml 03/08/20 09:00 03/13/20 09:02 Flush - Normal Saline 10 Ml Syringe IVF 10 ml Q12HR LASHELL Administration - Exam General Appearance: ill appearing Heart: RRR, no gallops Respiratory: no wheezes, rales, rhonchi Respiratory - other findings: Chest tube present Gastrointestinal: soft, non-tender, normal bowel sounds Extremities: no cyanosis, no clubbing Musculoskeletal: generalized weakness Psychiatric: normal affect, A&O x 3 Hosp A/P (1) Acute on chronic respiratory failure with hypoxia and hypercapnia Code(s): J96.21 - ACUTE AND CHRONIC RESPIRATORY FAILURE WITH HYPOXIA; J96.22 - ACUTE AND CHRONIC RESPIRATORY FAILURE WITH HYPERCAPNIA Status: Acute (2) Pneumothorax Code(s): J93.9 - PNEUMOTHORAX, UNSPECIFIED Status: Acute (3) Electrolyte abnormality Code(s): E87.8 - OTH DISORDERS OF ELECTROLYTE AND FLUID BALANCE, NEC Status: Acute (4) Severe protein-calorie malnutrition Code(s): E43 - UNSPECIFIED SEVERE PROTEIN-CALORIE MALNUTRITION Status: Chronic (5) Cachexia Code(s): R64 - CACHEXIA Status: Chronic (6) Lung cancer Code(s): C34.90 - MALIGNANT NEOPLASM OF UNSP PART OF UNSP BRONCHUS OR LUNG Status: Chronic (7) COPD (chronic obstructive pulmonary disease) Status: Chronic (8) Shock, unspecified Code(s): R57.9 - SHOCK, UNSPECIFIED Status: Resolved (9) Toxic metabolic encephalopathy Code(s): G92 - TOXIC ENCEPHALOPATHY Status: Resolved - Plan plan discussed w/ family, respiratory therapy 03/13 Replace magnesium. Continue banana bag. Continue Levaquin for pulmonary. Continue nebulizer treatments. Continue chest tube. Continue supportive care. Discharge to hospice once chest tubes DC'd. 03/12 Continue supportive care. Continue chest tube. Continue nebulizer treatment. Replace electrolytes. Continue antibiotics. Continue prednisone. A.m. labs. Discontinue Romo catheter in a.m. Continue other medications as above.
[2020-03-13] MEDS: Multivitamins, Adult 10 ML, Folic Acid 1 MG, Thiamine HCl 100 MG in Dextrose 5 %-0.45 %... IV SCH (17:20)
[2020-03-13] MEDS: Famotidine 20 MG TAB PO SCH (20:34)
[2020-03-13] MEDS: Docusate 100 MG CAP PO SCH (20:35)
[2020-03-14] MEDS: Mometasone 200 MCG/Formoterol 5 MCG 120 PUFF INHALER INH SCH ×2 (07:12→19:06)
[2020-03-14] MEDS: Folic Acid 1 MG TAB PO SCH (08:01)
[2020-03-14] MEDS: Cyanocobalamin (Vitamin B-12) 1,000 MCG TAB PO SCH (08:01)
[2020-03-14] MEDS: Multivit, Therapeutic 1 TAB PO SCH (08:01)
[2020-03-14] MEDS: Docusate 100 MG CAP PO SCH ×2 (08:01→20:09)
[2020-03-14] MEDS: Famotidine 20 MG TAB PO SCH ×2 (08:01→20:15)
[2020-03-14] MEDS: predniSONE 20 MG TAB PO SCH (08:01)
[2020-03-14] MEDS: levETIRAcetam 500 mg/5 ml Oral Solution PO SCH ×2 (08:02→20:15)
--- NOTE | 2020-03-14 09:09 | RAD ---
RADIOGRAPH CHEST 1 VIEW: DATE: 03/14/2020 TIME: 8:47 AM HISTORY: 69-year-old male follow-up pneumothorax COMPARISON: 03/13/2020 FINDINGS: Small right apical pneumothorax remains. Tiny left basilar component of pneumothorax remains. Left-sided chest tube remains. New left upper and lower subcutaneous emphysema. No other interval change. Spiculated left upper lobe perihilar lesion. Right sided implantable vascular access port Right lung remains clear. No cardiomegaly. IMPRESSION: 1) no interval change in small left pneumothorax. 2) new left-sided subcutaneous emphysema.
--- NOTE | 2020-03-14 11:43 | PDOC.HOSPP ---
- Subjective Encounter Date: 03/14/20 Encounter Time: 11:00 - Objective Vital Signs & Weight: Vital Signs (12 hours) Temp Pulse Resp BP Pulse Ox 03/14/20 10:57 82 20 99 03/14/20 07:32 97.6 F 87 16 114/63 96 03/14/20 07:12 86 18 99 Weight Admit Weight 106 lb Weight 3.637 oz Most Recent Monitor Data Heart Rate from ECG 89 NIBP 141/79 NIBP BP-Mean 99 Respiration from ECG 18 SpO2 100 I&O: 03/13/20 03/14/20 03/15/20 06:59 06:59 06:59 Intake Total 1380 Output Total 1700 Balance -1700 1380 Result Diagrams: 03/13/20 05:45 03/13/20 05:45 Additional Labs: 03/13/20 05:45: RBC 3.15 L, Hgb 10.3 L, Hct 31.2 L, MCV 99.0 H, MCH 32.6 H, Plt Count 124 L, Band Neuts % (Manual) 3 L, Myelocytes % 1 H 03/13/20 05:45: Potassium 3.4 L, Chloride 96 L, Carbon Dioxide 34 H, Creatinine 0.61 L, AST 42 H, ALT 59 H, Serum Total Protein 5.7 L, Albumin 2.9 L, Albumin/Globulin Ratio 1.0 L Microbiology - Entire Visit 03/07/20 23:42 Venous blood - Neck Blood Culture - Final NO GROWTH IN 5 DAYS 03/07/20 23:42 Venous blood - Neck Blood Culture - Final NO GROWTH IN 5 DAYS Radiology Reviewed by me: Yes (CXR - small left pneumothorax) Hospitalist ROS - Review of Systems Cardiovascular: denies: chest pain, palpitations, orthopnea, paroxysmal noc. dyspnea, edema, light headedness, other Gastrointestinal: denies: nausea, vomiting, abdominal pain, diarrhea, constipation, melena, hematochezia, other - Medication Medications: Active Medications Generic Name Dose Route Start Last Admin Trade Name Freq PRN Reason Stop Dose Admin Cyanocobalamin 1,000 mcg 03/14/20 09:00 03/14/20 08:01 Cyanocobalamin (Vitamin B-12) 1,000 Mcg Tab PO 1,000 mcg DAILY LASHELL Administration Docusate Sodium 100 mg 03/13/20 21:00 03/14/20 08:01 Docusate 100 Mg Cap PO 100 mg BID LASHELL Administration Famotidine 20 mg 03/13/20 21:00 03/14/20 08:01 Famotidine 20 Mg Tab PO 20 mg BID LASHELL Administration Folic Acid 1 mg 03/14/20 09:00 03/14/20 08:01 Folic Acid 1 Mg Tab PO 1 mg DAILY LASHELL Administration Multivitamins 10 ml/ Folic 1,011.2 mls @ 75 mls/hr 03/08/20 17:00 03/13/20 17:20 Acid 1 mg/ Thiamine HCl 100 mg IV 1,011.2 mls / Dextrose/Sodium Chloride Q24HR LASHELL Administration Levetiracetam 500 mg 03/08/20 21:00 03/14/20 08:02 Levetiracetam 500 Mg/5 Ml Oral Solution PO 500 mg BID LASHELL Administration Levofloxacin 500 mg 03/11/20 06:00 03/14/20 06:25 Levofloxacin 500 Mg Tab PO 03/16/20 06:01 500 mg 0600 LASHELL Administration Mometasone Furoate/Formoterol Fumar 2 puff 03/08/20 18:30 03/14/20 07:12 Mometasone 200 Mcg/Formoterol 5 Mcg 120 Puff Inhaler INH 2 puff BID-RT LASHELL Administration Morphine Sulfate 4 mg 03/08/20 15:45 03/13/20 17:17 Morphine 4 Mg/Ml Vial SLOW IVP 4 mg Q4H PRN Administration Moderate Pain (4-6) Multivitamins 1 tab 03/14/20 09:00 03/14/20 08:01 Multivit, Therapeutic 1 Tab PO 1 tab DAILY LASHELL Administration Prednisone 20 mg 03/11/20 08:00 03/14/20 08:01 Prednisone 20 Mg Tab PO 20 mg QAM-WM LASHELL Administration Sodium Chloride 10 ml 03/08/20 09:00 03/14/20 08:02 Flush - Normal Saline 10 Ml Syringe IVF 10 ml Q12HR LASHELL Administration - Exam Neck: supple, no JVD Heart: RRR, no gallops Respiratory: rales, rhonchi Gastrointestinal: soft, non-distended Extremities: no cyanosis Musculoskeletal: generalized weakness Hosp A/P (1) Acute on chronic respiratory failure with hypoxia and hypercapnia Code(s): J96.21 - ACUTE AND CHRONIC RESPIRATORY FAILURE WITH HYPOXIA; J96.22 - ACUTE AND CHRONIC RESPIRATORY FAILURE WITH HYPERCAPNIA Status: Acute (2) Pneumothorax Code(s): J93.9 - PNEUMOTHORAX, UNSPECIFIED Status: Acute (3) Electrolyte abnormality Code(s): E87.8 - OTH DISORDERS OF ELECTROLYTE AND FLUID BALANCE, NEC Status: Acute (4) Severe protein-calorie malnutrition Code(s): E43 - UNSPECIFIED SEVERE PROTEIN-CALORIE MALNUTRITION Status: Chronic (5) Cachexia Code(s): R64 - CACHEXIA Status: Chronic (6) Lung cancer Code(s): C34.90 - MALIGNANT NEOPLASM OF UNSP PART OF UNSP BRONCHUS OR LUNG Sta tus: Chronic (7) COPD (chronic obstructive pulmonary disease) Status: Chronic (8) Shock, unspecified Code(s): R57.9 - SHOCK, UNSPECIFIED Status: Resolved (9) Toxic metabolic encephalopathy Code(s): G92 - TOXIC ENCEPHALOPATHY Status: Resolved - Plan 03/14 Cont chest tube with nebs. Cont supportive care. Cont antibiotics with Prednisone. Discharge planning. 03/13 Replace magnesium. Continue banana bag. Continue Levaquin for pulmonary. Continue nebulizer treatments. Continue chest tube. Continue supportive care. Discharge to hospice once chest tubes DC'd. 03/12 Continue supportive care. Continue chest tube. Continue nebulizer treatment. Replace electrolytes. Continue antibiotics. Continue prednisone. A.m. labs. Discontinue Romo catheter in a.m. Continue other medications as above.
--- NOTE | 2020-03-14 12:07 | PRG ---
DATE OF SERVICE: 03/14/2020 SUBJECTIVE: Pepe Casper appears to be in no distress this morning. Chest tube in place. Persistent small air leak. OBJECTIVE: VITAL SIGNS: Temperature 97, pulse 82, respiratory rate 20, saturations are 99% on 2 L, blood pressure 140/63. CHEST: No wheezing. No crackles. CARDIAC: Normal S1 and S2. No gallops. ABDOMEN: No masses. IMPRESSION AND PLAN: Chronic obstructive pulmonary disease, metastatic cancer, severe deconditioning, cachexia, DNR. I am going to decrease his neb treatments to 3 times a day. He is relatively stable. X-ray may show small pneumothorax. Unfortunately, not much else can be done at this stage. Comfort care. Job ID: [id number]
[2020-03-14] MEDS: Morphine 4 MG/ML VIAL SLOW IVP PRN (16:33)
[2020-03-14] MEDS: Multivitamins, Adult 10 ML, Folic Acid 1 MG, Thiamine HCl 100 MG in Dextrose 5 %-0.45 %... IV SCH (16:48)
[2020-03-15] MEDS: Mometasone 200 MCG/Formoterol 5 MCG 120 PUFF INHALER INH SCH ×2 (05:16→19:15)
--- NOTE | 2020-03-15 08:24 | RAD ---
RADIOGRAPH CHEST 1 VIEW: DATE: 03/15/2020 TIME: 5:08 AM HISTORY: 69-year-old male follow-up pneumothorax COMPARISON: 03/14/2020 FINDINGS: Left subphrenic subcutaneous emphysema has improved. No other interval change The very small left pneumothorax remains. Left-sided chest tube, left perihilar spiculated pulmonary lesion, right-sided implantable vascular a ccess port, are again noted. Hyperinflation consistent with COPD. Right lung is relatively clear. No cardiomegaly. IMPRESSION: 1) persistent very small left pneumothorax remains. 2) interval improvement in the left-sided subcutaneous emphysema. 3) no other interval change. 4) spiculated perihilar left upper lobe pulmonary lesion: Evidence for lung cancer. 5) emphysema. 6) left-sided chest tube unchanged.
[2020-03-15] MEDS: Cyanocobalamin (Vitamin B-12) 1,000 MCG TAB PO SCH (08:59)
[2020-03-15] MEDS: predniSONE 20 MG TAB PO SCH (08:59)
[2020-03-15] MEDS: Folic Acid 1 MG TAB PO SCH (08:59)
[2020-03-15] MEDS: Docusate 100 MG CAP PO SCH ×2 (08:59→21:32)
[2020-03-15] MEDS: levETIRAcetam 500 mg/5 ml Oral Solution PO SCH ×2 (09:00→21:07)
[2020-03-15] MEDS: Multivit, Therapeutic 1 TAB PO SCH (09:00)
[2020-03-15] MEDS: Famotidine 20 MG TAB PO SCH ×2 (09:00→21:06)
[2020-03-15] MEDS: Morphine 4 MG/ML VIAL SLOW IVP PRN ×4 (11:13→23:16)
--- NOTE | 2020-03-15 11:19 | PRG ---
DATE OF SERVICE: 03/15/2020 SUBJECTIVE: Pepe Casper is a 69-year-old gentleman. Chest tube in place. OBJECTIVE: VITAL SIGNS: Temperature 98, pulse , sats 100% on room air, respiratory rate 18, blood pressure 105/65. GENERAL: Complaining of some chest pain, but no shortness of breath. CHEST: No wheezing. No crackles. CARDIAC: Normal S1 and S2. No gallops. ABDOMEN: No masses. ASSESSMENT AND PLAN: Pneumothorax, chest tube, severe deconditioning, cachexia, metastatic cancer. Comfort care. Home when chest tube is removed. Job ID: [id number]
--- NOTE | 2020-03-15 14:48 | PDOC.HOSPP ---
- Subjective Encounter Date: 03/15/20 Encounter Time: 09:00 Subjective: Patient seen and examined for respiratory failure with pneumothorax. No significant change in shortness of breath. No other complaints - Objective Vital Signs & Weight: Vital Signs (12 hours) Temp Pulse Resp BP Pulse Ox 03/15/20 12:46 85 16 99 03/15/20 11:22 97.3 F L 90 20 119/73 100 03/15/20 08:00 93 L 03/15/20 07:22 98.1 F 93 18 105/65 100 03/15/20 05:15 83 16 100 Weight Admit Weight 106 lb Weight 103 lb 9 oz Most Recent Monitor Data Heart Rate from ECG 89 NIBP 141/79 NIBP BP-Mean 99 Respiration from ECG 18 SpO2 100 I&O: 03/14/20 03/15/20 03/16/20 06:59 06:59 06:59 Intake Total 1380 740 Output Total 75 Balance 1380 665 Result Diagrams: 03/13/20 05:45 03/13/20 05:45 Radiology Reviewed by me: Yes (Chest x-raypersistent left-sided pneumothorax) Hospitalist ROS - Review of Systems Cardiovascular: denies: chest pain, palpitations, orthopnea, paroxysmal noc. dyspnea, edema, light headedness, other Gastrointestinal: denies: nausea, vomiting, abdominal pain, diarrhea, constipation, melena, hematochezia, other - Medication Medications: Active Medications Generic Name Dose Route Start Last Admin Trade Name Freq PRN Reason Stop Dose Admin Albuterol/Ipratropium 3 ml 03/14/20 15:00 03/15/20 12:46 Ipratropium/Albuterol Sulfate 3 Ml Neb NEB 3 ml TID LASHELL Administration Cyanocobalamin 1,000 mcg 03/14/20 09:00 03/15/20 08:59 Cyanocobalamin (Vitamin B-12) 1,000 Mcg Tab PO 1,000 mcg DAILY LASHELL Administration Docusate Sodium 100 mg 03/13/20 21:00 03/15/20 08:59 Docusate 100 Mg Cap PO 100 mg BID LASHELL Administration Famotidine 20 mg 03/13/20 21:00 03/15/20 09:00 Famotidine 20 Mg Tab PO 20 mg BID LASHELL Administration Folic Acid 1 mg 03/14/20 09:00 03/15/20 08:59 Folic Acid 1 Mg Tab PO 1 mg DAILY LASHELL Administration Multivitamins 10 ml/ Folic 1,011.2 mls @ 75 mls/hr 03/08/20 17:00 03/14/20 16:48 Acid 1 mg/ Thiamine HCl 100 mg IV 1,011.2 mls / Dextrose/Sodium Chloride Q24HR LASHELL Administration Levetiracetam 500 mg 03/08/20 21:00 03/15/20 09:00 Levetiracetam 500 Mg/5 Ml Oral Solution PO 500 mg BID LASHELL Administration Levofloxacin 500 mg 03/11/20 06:00 03/15/20 05:58 Levofloxacin 500 Mg Tab PO 03/16/20 06:01 500 mg 0600 LASHELL Administration Mometasone Furoate/Formoterol Fumar 2 puff 03/08/20 18:30 03/15/20 05:16 Mometasone 200 Mcg/Formoterol 5 Mcg 120 Puff Inhaler INH 2 puff BID-RT LASHELL Administration Morphine Sulfate 4 mg 03/08/20 15:45 03/15/20 11:13 Morphine 4 Mg/Ml Vial SLOW IVP 4 mg Q4H PRN Administration Moderate Pain (4-6) Multivitamins 1 tab 03/14/20 09:00 03/15/20 09:00 Multivit, Therapeutic 1 Tab PO 1 tab DAILY LASHELL Administration Prednisone 20 mg 03/11/20 08:00 03/15/20 08:59 Prednisone 20 Mg Tab PO 20 mg QAM-WM LASHELL Administration Sodium Chloride 10 ml 03/08/20 09:00 03/15/20 09:00 Flush - Normal Saline 10 Ml Syringe IVF 10 ml Q12HR LASHELL Administration - Exam General Appearance: ill appearing Heart: RRR, no gallops Respiratory: rales, rhonchi Gastrointestinal: soft, non-distended, normal bowel sounds Extremities: no cyanosis, no clubbing Neurological: no new deficit Hosp A/P (1) Acute on chronic respiratory failure with hypoxia and hypercapnia Code(s): J96.21 - ACUTE AND CHRONIC RESPIRATORY FAILURE WITH HYPOXIA; J96.22 - ACUTE AND CHRONIC RESPIRATORY FAILURE WITH HYPERCAPNIA Status: Acute (2) Pneumothorax Code(s): J93.9 - PNEUMOTHORAX, UNSPECIFIED Status: Acute (3) Electrolyte abnormality Code(s): E87.8 - OTH DISORDERS OF ELECTROLYTE AND FLUID BALANCE, NEC Status: Acute (4) Severe protein-calorie malnutrition Code(s): E43 - UNSPECIFIED SEVERE PROTEIN-CALORIE MALNUTRITION Status: Chronic (5) Cachexia Code(s): R64 - CACHEXIA Status: Chronic (6) Lung cancer Code(s): C34.90 - MALIGNANT NEOPLASM OF UNSP PART OF UNSP BRONCHUS OR LUNG Status: Chronic (7) COPD (chronic obstructive pulmonary disease) Status: Chronic (8) Shock, unspecified Code(s): R57.9 - SHOCK, UNSPECIFIED Status: Resolved (9) Toxic metabolic encephalopathy Code(s): G92 - TOXIC ENCEPHALOPATHY Status: Resolved - Plan 03/15 Continue supportive care. Continue nebulizer treatment. Chest tube for pneumothorax. Continue antibiotics with steroids. Discharge to hospice after chest tube removal 03/14 Cont chest tube with nebs. Cont supportive care. Cont antibiotics with Prednis one. Discharge planning. 03/13 Replace magnesium. Continue banana bag. Continue Levaquin for pulmonary. Continue nebulizer treatments. Continue chest tube. Continue supportive care. Discharge to hospice once chest tubes DC'd. 03/12 Continue supportive care. Continue chest tube. Continue nebulizer treatment. Replace electrolytes. Continue antibiotics. Continue prednisone. A.m. labs. Discontinue Romo catheter in a.m. Continue other medications as above.
[2020-03-15] MEDS: Multivitamins, Adult 10 ML, Folic Acid 1 MG, Thiamine HCl 100 MG in Dextrose 5 %-0.45 %... IV SCH (17:59)
--- NOTE | 2020-03-16 07:31 | PRG ---
DATE OF SERVICE: SUBJECTIVE: The patient is on suction this morning and does have a very small air leak with a vigorous cough. Chest x-ray is pending. I think the patient would probably avoid a prolonged hospital stay by being discharged with a Heimlich valve and otherwise, I think the question is to how long this leak may persist and keep him in the hospital. We will try him off suction again today. Job ID: [id number]
[2020-03-16] MEDS: Mometasone 200 MCG/Formoterol 5 MCG 120 PUFF INHALER INH SCH ×2 (07:36→18:52)
[2020-03-16] MEDS: Famotidine 20 MG TAB PO SCH ×2 (09:03→20:33)
[2020-03-16] MEDS: predniSONE 20 MG TAB PO SCH (09:04)
[2020-03-16] MEDS: Multivit, Therapeutic 1 TAB PO SCH (09:04)
[2020-03-16] MEDS: Folic Acid 1 MG TAB PO SCH (09:04)
[2020-03-16] MEDS: Cyanocobalamin (Vitamin B-12) 1,000 MCG TAB PO SCH (09:04)
[2020-03-16] MEDS: Docusate 100 MG CAP PO SCH ×3 (09:04→20:41)
[2020-03-16] MEDS: levETIRAcetam 500 mg/5 ml Oral Solution PO SCH ×2 (09:05→20:33)
--- NOTE | 2020-03-16 13:24 | PRG ---
DATE OF SERVICE: 03/16/2020 OBJECTIVE: VITAL SIGNS: Temperature 97, pulse 90, sats 100% on 2 L, blood pressure 130/82. GENERAL: No pain or discomfort. CHEST: No wheezing. No crackles. CARDIAC: Normal S1 and S2. No gallops. ABDOMEN: Soft. IMAGING STUDIES: Chest x-ray shows intermittent leak. ASSESSMENT AND PLAN: Chronic obstructive pulmonary disease; metastatic lung cancer, pneumothorax, PLAN . Continue supportive care. does not want to take the patient home with chest tube in place. Job ID: [id number] [facility]
--- NOTE | 2020-03-16 17:44 | PDOC.HOSPP ---
- Subjective Encounter Date: 03/16/20 Encounter Time: 10:45 Subjective: Patient seen and examined for respiratory failure/pneumothorax. No new complaints. Shortness of breath on [id number] exertion. - Objective Vital Signs & Weight: Vital Signs (12 hours) Temp Pulse Resp BP Pulse Ox 03/16/20 08:00 100 03/16/20 07:35 97.4 F L 90 20 134/82 100 03/16/20 07:33 87 16 98 Weight Admit Weight 106 lb Weight 96 lb 5 oz Most Recent Monitor Data Heart Rate from ECG 89 NIBP 141/79 NIBP BP-Mean 99 Respiration from ECG 18 SpO2 100 I&O: 03/15/20 03/16/20 03/17/20 06:59 06:59 06:59 Intake Total 740 1680 Output Total 75 30 Balance 665 1650 Result Diagrams: 03/13/20 05:45 03/13/20 05:45 Hospitalist ROS - Review of Systems Gastrointestinal: denies: nausea, vomiting, abdominal pain, diarrhea, constipation, melena, hematochezia, other Genitourinary: denies: dysuria, frequency, incontinence, hematuria, retention, other - Medication Medications: Active Medications Generic Name Dose Route Start Last Admin Trade Name Freq PRN Reason Stop Dose Admin Albuterol/Ipratropium 3 ml 03/14/20 15:00 03/16/20 14:29 Ipratropium/Albuterol Sulfate 3 Ml Neb NEB Not Given TID LASHELL Cyanocobalamin 1,000 mcg 03/14/20 09:00 03/16/20 09:04 Cyanocobalamin (Vitamin B-12) 1,000 Mcg Tab PO 1,000 mcg DAILY LASHELL Administration Docusate Sodium 100 mg 03/13/20 21:00 03/16/20 09:04 Docusate 100 Mg Cap PO 100 mg BID LASHELL Administration Famotidine 20 mg 03/13/20 21:00 03/16/20 09:03 Famotidine 20 Mg Tab PO 20 mg BID LASHELL Administration Folic Acid 1 mg 03/14/20 09:00 03/16/20 09:04 Folic Acid 1 Mg Tab PO 1 mg DAILY LASHELL Administration Multivitamins 10 ml/ Folic 1,011.2 mls @ 75 mls/hr 03/08/20 17:00 03/15/20 17:59 Acid 1 mg/ Thiamine HCl 100 mg IV 1,011.2 mls / Dextrose/Sodium Chloride Q24HR LASHELL Administration Levetiracetam 500 mg 03/08/20 21:00 03/16/20 09:05 Levetiracetam 500 Mg/5 Ml Oral Solution PO 500 mg BID LASHELL Administration Mometasone Furoate/Formoterol Fumar 2 puff 03/08/20 18:30 03/16/20 07:36 Mometasone 200 Mcg/Formoterol 5 Mcg 120 Puff Inhaler INH 2 puff BID-RT LASHELL Administration Morphine Sulfate 4 mg 03/08/20 15:45 03/15/20 23:16 Morphine 4 Mg/Ml Vial SLOW IVP 4 mg Q4H PRN Administration Moderate Pain (4-6) Multivitamins 1 tab 03/14/20 09:00 03/16/20 09:04 Multivit, Therapeutic 1 Tab PO 1 tab DAILY LASHELL Administration Prednisone 20 mg 03/11/20 08:00 03/16/20 09:04 Prednisone 20 Mg Tab PO 20 mg QAM-WM LASHELL Administration Sodium Chloride 10 ml 03/08/20 09:00 03/16/20 09:05 Flush - Normal Saline 10 Ml Syringe IVF 10 ml Q12HR LASHELL Administration - Exam General Appearance: ill appearing Heart: RRR, no gallops Respiratory: no wheezes, rales, rhonchi Gastrointestinal: soft, non-distended, normal bowel sounds, no guarding, no rigidity Extremities: no cyanosis Neurological: no new deficit Hosp A/P (1) Acute on chronic respiratory failure with hypoxia and hypercapnia Code(s): J96.21 - ACUTE AND CHRONIC RESPIRATORY FAILURE WITH HYPOXIA; J96.22 - ACUTE AND CHRONIC RESPIRATORY FAILURE WITH HYPERCAPNIA Status: Acute (2) Pneumothorax Code(s): J93.9 - PNEUMOTHORAX, UNSPECIFIED Status: Acute (3) Electrolyte abnormality Code(s): E87.8 - OTH DISORDERS OF ELECTROLYTE AND FLUID BALANCE, NEC Status: Acute (4) Severe protein-calorie malnutrition Code(s): E43 - UNSPECIFIED SEVERE PROTEIN-CALORIE MALNUTRITION Status: Chronic (5) Cachexia Code(s): R64 - CACHEXIA Status: Chronic (6) Lung cancer Code(s): C34.90 - MALIGNANT NEOPLASM OF UNSP PART OF UNSP BRONCHUS OR LUNG Status: Chronic (7) COPD (chronic obstructive pulmonary disease) Status: Chronic (8) Shock, unspecified Code(s): R57.9 - SHOCK, UNSPECIFIED Status: Resolved (9) Toxic metabolic encephalopathy Code(s): G92 - TOXIC ENCEPHALOPATHY Status: Resolved - Plan DVT proph w/SCDs 03/16 Continue supportive care. Continue chest tube. Continue Levaquin with predniso ne 20 mg daily. Continue inhalers. Continue other medications as above. Plan discussed with patient's daughter and other family members. 03/15 Continue supportive care. Continue nebulizer treatment. Chest tube for pneumothorax. Continue antibiotics with steroids. Discharge to hospice after chest tube removal 03/14 Cont chest tube with nebs. Cont supportive care. Cont antibiotics with Predni sone. Discharge planning. 03/13 Replace magnesium. Continue banana bag. Continue Levaquin for pulmonary. Continue nebulizer treatments. Continue chest tube. Continue supportive care. Discharge to hospice once chest tubes DC'd. 03/12 Continue supportive care. Continue chest tube. Continue nebulizer treatment. Replace electrolytes. Continue antibiotics. Continue prednisone. A.m. labs. Discontinue Romo catheter in a.m. Continue other medications as above.
[2020-03-16] MEDS: Multivitamins, Adult 10 ML, Folic Acid 1 MG, Thiamine HCl 100 MG in Dextrose 5 %-0.45 %... IV SCH (20:32)
[2020-03-17] MEDS: Mometasone 200 MCG/Formoterol 5 MCG 120 PUFF INHALER INH SCH ×2 (06:59→18:44)
[2020-03-17] MEDS: Multivit, Therapeutic 1 TAB PO SCH (09:03)
[2020-03-17] MEDS: predniSONE 20 MG TAB PO SCH (09:03)
[2020-03-17] MEDS: Famotidine 20 MG TAB PO SCH ×2 (09:04→19:58)
[2020-03-17] MEDS: Folic Acid 1 MG TAB PO SCH (09:04)
[2020-03-17] MEDS: Cyanocobalamin (Vitamin B-12) 1,000 MCG TAB PO SCH (09:04)
[2020-03-17] MEDS: Docusate 100 MG CAP PO SCH ×2 (09:04→19:57)
[2020-03-17] MEDS: levETIRAcetam 500 mg/5 ml Oral Solution PO SCH ×2 (09:10→19:58)
--- NOTE | 2020-03-17 09:27 | PRG ---
DATE OF SERVICE: 03/17/2020 SUBJECTIVE: Pepe Casper is a 69-year-old gentleman, who is awake. Chest tube off suction. OBJECTIVE: VITAL SIGNS: Temperature 97 pulse 78/min sats are 100% on 2 L, blood pressure _120/76 LUNGS: Good breath sounds bilaterally. CARDIAC: Normal S1, S2. No gallops. ABDOMEN: No masses. ASSESSMENT AND PLAN: Left-sided pneumothorax, metastatic lung cancer, chronic obstructive pulmonary disease. Supportive care. Home when CT is discontinued. He is a DNR. Job ID: [id number] [facility]
--- NOTE | 2020-03-17 11:18 | RAD ---
PORTABLE CHEST: Date: 03/17/2020 INDICATION: Pneumothorax. COMPARISON: 03/15/2020. FINDINGS: Left chest tube is unchanged in position. The small left pneumothorax is also unchanged in size and a ppearance. The lung mass in the left mid chest is again seen and unchanged. Right lung remains clear and unchanged. IMPRESSION: Persistent left pneumothorax, not significantly changed from prior exam. POS: AH
--- NOTE | 2020-03-17 17:27 | EKG ---
Test Reason : Blood Pressure : / mmHG Vent. Rate : 104 BPM Atrial Rate : 104 BPM P-R Int : 136 ms QRS Dur : 070 ms QT Int : 364 ms P-R-T Axes : 074 078 079 degrees QTc Int : 478 ms Sinus tachycardia with frequent Premature ventricular complexes in a pattern of bigeminy Otherwise normal ECG When compared with ECG of 07-MAR-2020 22:49, (Unconfirmed) Premature ventricular complexes are now Present Nonspecific T wave abnormality no longer evident in Lateral leads Confirmed by DR. Javier GREENE ([id number]) on 03/17/2020 5:27:28 PM Referred By: NIECY Confirmed By:DR. Javier GREENE
[2020-03-17] MEDS: Multivitamins, Adult 10 ML, Folic Acid 1 MG, Thiamine HCl 100 MG in Dextrose 5 %-0.45 %... IV SCH (17:39)
--- NOTE | 2020-03-17 18:31 | PDOC.HOSPP ---
- Subjective Encounter Date: 03/17/20 Encounter Time: 10:30 Subjective: Patient seen and examined for respiratory failure with pneumothorax. Feels the same. Mild dry cough. Shortness of breath the same. - Objective Vital Signs & Weight: Vital Signs (12 hours) Temp Pulse Resp BP Pulse Ox 03/17/20 18:27 107/63 97 03/17/20 15:40 97.4 F L 93 16 93/56 L 98 03/17/20 13:49 80 16 100 03/17/20 11:16 98.0 F 77 16 95/56 L 98 03/17/20 09:12 100 03/17/20 07:45 97.4 F L 75 16 114/68 100 03/17/20 07:01 98 03/17/20 07:00 80 16 98 Weight Admit Weight 106 lb Weight 99 lb 6 oz Most Recent Monitor Data Heart Rate from ECG 89 NIBP 141/79 NIBP BP-Mean 99 Respiration from ECG 18 SpO2 100 I&O: 03/16/20 03/17/20 03/18/20 06:59 06:59 06:59 Intake Total 1680 1180 Output Total 30 3 Balance 1650 1177 Result Diagrams: 03/13/20 05:45 03/13/20 05:45 Radiology Reviewed by me: Yes (Chest x-raypneumothorax) Hospitalist ROS - Review of Systems Cardiovascular: denies: chest pain, palpitations, orthopnea, paroxysmal noc. dyspnea, edema, light headedness, other Gastrointestinal: denies: nausea, vomiting, abdominal pain, diarrhea, constipation, melena, hematochezia, other - Medication Medications: Active Medications Generic Name Dose Route Start Last Admin Trade Name Freq PRN Reason Stop Dose Admin Albuterol/Ipratropium 3 ml 03/17/20 12:30 03/17/20 13:49 Ipratropium/Albuterol Sulfate 3 Ml Neb NEB 3 ml TID-RT LASHELL Administration Cyanocobalamin 1,000 mcg 03/14/20 09:00 03/17/20 09:04 Cyanocobalamin (Vitamin B-12) 1,000 Mcg Tab PO 1,000 mcg DAILY LASHELL Administration Docusate Sodium 100 mg 03/13/20 21:00 03/17/20 09:04 Docusate 100 Mg Cap PO Not Given BID LASHELL Famotidine 20 mg 03/13/20 21:00 03/17/20 09:04 Famotidine 20 Mg Tab PO 20 mg BID LASHELL Administration Folic Acid 1 mg 03/14/20 09:00 03/17/20 09:04 Folic Acid 1 Mg Tab PO 1 mg DAILY LASHELL Administration Multivitamins 10 ml/ Folic 1,011.2 mls @ 75 mls/hr 03/08/20 17:00 03/17/20 17:39 Acid 1 mg/ Thiamine HCl 100 mg IV 1,011.2 mls / Dextrose/Sodium Chloride Q24HR LASHELL Administration Levetiracetam 500 mg 03/08/20 21:00 03/17/20 09:10 Levetiracetam 500 Mg/5 Ml Oral Solution PO 500 mg BID LASHELL Administration Mometasone Furoate/Formoterol Fumar 2 puff 03/08/20 18:30 03/17/20 06:59 Mometasone 200 Mcg/Formoterol 5 Mcg 120 Puff Inhaler INH 2 puff BID-RT LASHELL Administration Morphine Sulfate 4 mg 03/08/20 15:45 03/15/20 23:16 Morphine 4 Mg/Ml Vial SLOW IVP 4 mg Q4H PRN Administration Moderate Pain (4-6) Multivitamins 1 tab 03/14/20 09:00 03/17/20 09:03 Multivit, Therapeutic 1 Tab PO 1 tab DAILY LASHELL Administration Prednisone 20 mg 03/11/20 08:00 03/17/20 09:03 Prednisone 20 Mg Tab PO 20 mg QAM-WM LASHELL Administration Sodium Chloride 10 ml 03/08/20 09:00 03/17/20 09:05 Flush - Normal Saline 10 Ml Syringe IVF 10 ml Q12HR LASHELL Administration - Exam General Appearance: ill appearing Neck: supple, no JVD Heart: RRR, no gallops Respiratory: no wheezes, rhonchi Gastrointestinal: soft, non-tender, normal bowel sounds Extremities: no cyanosis, no clubbing Hosp A/P (1) Acute on chronic respiratory failure with hypoxia and hypercapnia Code(s): J96.21 - ACUTE AND CHRONIC RESPIRATORY FAILURE WITH HYPOXIA; J96.22 - ACUTE AND CHRONIC RESPIRATORY FAILURE WITH HYPERCAPNIA Status: Acute (2) Pneumothorax Code(s): J93.9 - PNEUMOTHORAX, UNSPECIFIED Status: Acute (3) Electrolyte abnormality Code(s): E87.8 - OTH DISORDERS OF ELECTROLYTE AND FLUID BALANCE, NEC Status: Acute (4) Severe protein-calorie malnutrition Code(s): E43 - UNSPECIFIED SEVERE PROTEIN-CALORIE MALNUTRITION Status: Chronic (5) Cachexia Code(s): R64 - CACHEXIA Status: Chronic (6) Lung cancer Code(s): C34.90 - MALIGNANT NEOPLASM OF UNSP PART OF UNSP BRONCHUS OR LUNG Status: Chronic (7) COPD (chronic obstructive pulmonary disease) Status: Chronic (8) Shock, unspecified Code(s): R57.9 - SHOCK, UNSPECIFIED Status: Resolved (9) Toxic metabolic encephalopathy Code(s): G92 - TOXIC ENCEPHALOPATHY Status: Resolved - Plan DVT proph w/SCDs 03/17 Await hospice set up. Continue chest tube per cardiovascular for pneumothorax. Chest tube off suction at this time. Continue prednisone with Levaquin. Continue supportive care. 03/16 Continue supportive care. Continue chest tube. Continue Levaquin with prednisone 20 mg daily. Continue inhalers. Continue other medications as above. Plan discussed with patient's daughter and other family members. 03/15 Continue supportive care. Continue nebulizer treatment. Chest tube for pneumothorax. Continue antibiotics with steroids. Discharge to hospice after chest tube removal 03/14 Cont chest tube with nebs. Cont supportive care. Cont antibiotics with Prednisone. Discharge planning. 03/13 Replace magnesium. Continue banana bag. Continue Levaquin for pulmonary. Continue nebulizer treatments. Continue chest tube. Continue supportive care. Discharge to hospice once chest tubes DC'd. 03/12 Continue supportive care. Continue chest tube. Continue nebulizer treatment. Replace electrolytes. Continue antibiotics. Continue prednisone. A.m. labs. Discontinue Romo catheter in a.m. Continue other medications as above.
[2020-03-17] MEDS: Morphine 4 MG/ML VIAL SLOW IVP PRN (20:01)
[2020-03-18] MEDS: Mometasone 200 MCG/Formoterol 5 MCG 120 PUFF INHALER INH SCH ×2 (07:06→19:18)
--- NOTE | 2020-03-18 07:10 | PRG ---
DATE OF SERVICE: 03/18/2020 SUBJECTIVE: The patient is off suction today and has a chest x-ray that overall looks okay, I believe. He does still have an air leak intermittently with breathing. His output has been minimal. No changes expected in the near future and I think the better option would be an outpatient Heimlich valve anticipating a prolonged recovery. Job ID: [id number]
--- NOTE | 2020-03-18 07:51 | RAD ---
Portable upright frontal chest radiograph: 03/18/2020 COMPARISON: 03/17/2020 HISTORY: Shortness of breath, history of pneumothorax FINDINGS: A right-sided Port-A-Cath is present. There is increased linear interstitial density with p ulmonary hyperinflation. Irregularly marginated masslike opacity noted in the left perihilar/suprahilar region, better assessed on 03/08/[address] There is a left pneumothorax whic h appears similar in size when compared to the 03/17/2020 exam. This pneumothorax is small, best seen within the superolateral aspect of the left upper lobe region and in the left costophrenic angle . IMPRESSION: Stable small left-sided pneumothorax with left chest tube in place. Irregular masslike op acity in the left perihilar region.
[2020-03-18] MEDS: Famotidine 20 MG TAB PO SCH ×2 (08:05→21:27)
[2020-03-18] MEDS: Multivit, Therapeutic 1 TAB PO SCH (08:05)
[2020-03-18] MEDS: predniSONE 20 MG TAB PO SCH (08:05)
[2020-03-18] MEDS: Folic Acid 1 MG TAB PO SCH (08:05)
[2020-03-18] MEDS: Cyanocobalamin (Vitamin B-12) 1,000 MCG TAB PO SCH (08:05)
[2020-03-18] MEDS: Docusate 100 MG CAP PO SCH ×2 (08:05→21:22)
[2020-03-18] MEDS: levETIRAcetam 500 mg/5 ml Oral Solution PO SCH ×2 (09:51→21:22)
--- NOTE | 2020-03-18 10:38 | PRG ---
DATE OF SERVICE: SUBJECTIVE: Pepe Casper is a 69-year-old gentleman, COPD, pneumothorax, doing well. In fact, he is more awake. He is able to feed himself. OBJECTIVE: VITAL SIGNS: Temperature 97, pulse , respirations 20, sats 100% on 2 L, and blood pressure 109/61. CHEST: Decreased breath sounds. No wheezing. CARDIAC: Normal S1 and S2. No gallops. ABDOMEN: No masses. ASSESSMENT: Pneumothorax, lung cancer, chronic obstructive pulmonary disease. Continue CT drainage. Pulmonary is going to follow. Job ID: [id number]
[2020-03-18 11:41] VITALS: BMI 14.9
--- NOTE | 2020-03-18 16:04 | PDOC.HOSPP ---
- Subjective Encounter Date: 03/18/20 Encounter Time: 08:00 Subjective: Patient seen and examined for respiratory failure with pneumothorax. No significant change in the respiratory status. Some cough with minimal production. No chest pain or palpitations. - Objective Vital Signs & Weight: Vital Signs (12 hours) Temp Pulse Resp BP Pulse Ox 03/18/20 12:15 82 16 100 03/18/20 11:51 97.6 F 88 20 111/66 98 03/18/20 08:08 100 03/18/20 08:00 97.6 F 83 20 109/61 100 03/18/20 07:08 73 18 99 Weight Admit Weight 106 lb Weight 101 lb 1 oz Most Recent Monitor Data Heart Rate from ECG 89 NIBP 141/79 NIBP BP-Mean 99 Respiration from ECG 18 SpO2 100 I&O: 03/17/20 03/18/20 03/19/20 06:59 06:59 06:59 Intake Total 1180 2740 Output Total 3 Balance 1177 2740 Result Diagrams: 03/13/20 05:45 03/13/20 05:45 Additional Labs: Microbiology - Entire Visit 03/07/20 23:42 Venous blood - Neck Blood Culture - Final NO GROWTH IN 5 DAYS 03/07/20 23:42 Venous blood - Neck Blood Culture - Final NO GROWTH IN 5 DAYS Hospitalist ROS - Review of Systems Respiratory: denies: cough, dry, shortness of breath, hemoptysis, SOB with excertion, pleuritic pain, sputum, wheezing, other Cardiovascular: denies: chest pain, palpitations, orthopnea, paroxysmal noc. dyspnea, edema, light headedness, other - Medication Medications: Active Medications Generic Name Dose Route Start Last Admin Trade Name Freq PRN Reason Stop Dose Admin Albuterol/Ipratropium 3 ml 03/17/20 12:30 03/18/20 12:15 Ipratropium/Albuterol Sulfate 3 Ml Neb NEB 3 ml TID-RT LASHELL Administration Cyanocobalamin 1,000 mcg 03/14/20 09:00 03/18/20 08:05 Cyanocobalamin (Vitamin B-12) 1,000 Mcg Tab PO 1,000 mcg DAILY LASHELL Administration Docusate Sodium 100 mg 03/13/20 21:00 03/18/20 08:05 Docusate 100 Mg Cap PO 100 mg BID LASHELL Administration Famotidine 20 mg 03/13/20 21:00 03/18/20 08:05 Famotidine 20 Mg Tab PO 20 mg BID LASHELL Administration Folic Acid 1 mg 03/14/20 09:00 03/18/20 08:05 Folic Acid 1 Mg Tab PO 1 mg DAILY LASHELL Administration Multivitamins 10 ml/ Folic 1,011.2 mls @ 75 mls/hr 03/08/20 17:00 03/17/20 17:39 Acid 1 mg/ Thiamine HCl 100 mg IV 1,011.2 mls / Dextrose/Sodium Chloride Q24HR LASHELL Administration Levetiracetam 500 mg 03/08/20 21:00 03/18/20 09:51 Levetiracetam 500 Mg/5 Ml Oral Solution PO 500 mg BID LASHELL Administration Mometasone Furoate/Formoterol Fumar 2 puff 03/08/20 18:30 03/18/20 07:06 Mometasone 200 Mcg/Formoterol 5 Mcg 120 Puff Inhaler INH 2 puff BID-RT LASHELL Administration Multivitamins 1 tab 03/14/20 09:00 03/18/20 08:05 Multivit, Therapeutic 1 Tab PO 1 tab DAILY LASHELL Administration Sodium Chloride 10 ml 03/08/20 09:00 03/18/20 08:06 Flush - Normal Saline 10 Ml Syringe IVF 10 ml Q12HR LASHELL Administration - Exam General Appearance: ill appearing Neck: supple, no JVD Heart: RRR, no gallops Respiratory: rales, rhonchi Gastrointestinal: soft, non-tender, normal bowel sounds Extremities: no cyanosis Neurological: no new deficit Hosp A/P (1) Acute on chronic respiratory failure with hypoxia and hypercapnia Code(s): J96.21 - ACUTE AND CHRONIC RESPIRATORY FAILURE WITH HYPOXIA; J96.22 - ACUTE AND CHRONIC RESPIRATORY FAILURE WITH HYPERCAPNIA Status: Acute (2) Pneumothorax Code(s): J93.9 - PNEUMOTHORAX, UNSPECIFIED Status: Acute (3) Electrolyte abnormality Code(s): E87.8 - OTH DISORDERS OF ELECTROLYTE AND FLUID BALANCE, NEC Status: Acute (4) Severe protein-calorie malnutrition Code(s): E43 - UNSPECIFIED SEVERE PROTEIN-CALORIE MALNUTRITION Status: Chronic (5) Cachexia Code(s): R64 - CACHEXIA Status: Chronic (6) Lung cancer Code(s): C34.90 - MALIGNANT NEOPLASM OF UNSP PART OF UNSP BRONCHUS OR LUNG Status: Chronic (7) COPD (chronic obstructive pulmonary disease) Status: Chronic (8) Shock, unspecified Code(s): R57.9 - SHOCK, UNSPECIFIED Status: Resolved (9) Toxic metabolic encephalopathy Code(s): G92 - TOXIC ENCEPHALOPATHY Status: Resolved - Plan 03/[address] Esquivel. Continue chest tube for now. Await hospice set up. Continue Levaquin. Prednisone dose reduced to 10 mg daily. Continue Levaquin. 03/17 Await hospice set up. Continue chest tube per cardiovascular for pneumothorax. Chest tube off suction at this time. Continue prednisone with Levaquin. Continue supportive care. 03/16 Continue supportive care. Continue chest tube. Continue Levaquin with prednisone 20 mg daily. Continue inhalers. Continue other medications as above. Plan discussed with patient's daughter and other family members. 03/15 Continue supportive care. Continue nebulizer treatment. Chest tube for pneumothorax. Continue antibiotics with steroids. Discharge to hospice after chest tube removal 03/14 Cont chest tube with nebs. Cont supportive care. Cont antibiotics with Prednisone. Discharge planning. 03/13 Replace magnesium. Continue banana bag. Continue Levaquin for pulmonary. Continue nebulizer treatments. Continue chest tube. Continue supportive care. Discharge to hospice once chest tubes DC'd. 03/12 Continue supportive care. Continue chest tube. Continue nebulizer treatment. Replace electrolytes. Continue antibiotics. Continue prednisone. A.m. labs. Discontinue Romo catheter in a.m. Continue other medications as above.
[2020-03-18] MEDS: Multivitamins, Adult 10 ML, Folic Acid 1 MG, Thiamine HCl 100 MG in Dextrose 5 %-0.45 %... IV SCH (19:20)
[2020-03-19] MEDS: Mometasone 200 MCG/Formoterol 5 MCG 120 PUFF INHALER INH SCH ×2 (06:36→18:35)
[2020-03-19] MEDS ORDERED: predniSONE 20 MG TAB PO SCH (08:00)
[2020-03-19] MEDS: Famotidine 20 MG TAB PO SCH ×2 (08:33→20:31)
[2020-03-19] MEDS: Cyanocobalamin (Vitamin B-12) 1,000 MCG TAB PO SCH (08:33)
[2020-03-19] MEDS: Multivit, Therapeutic 1 TAB PO SCH (08:33)
[2020-03-19] MEDS: Folic Acid 1 MG TAB PO SCH (08:33)
[2020-03-19] MEDS: Docusate 100 MG CAP PO SCH ×2 (08:34→20:31)
[2020-03-19] MEDS: levETIRAcetam 500 mg/5 ml Oral Solution PO SCH ×2 (08:34→20:31)
--- NOTE | 2020-03-19 09:23 | RAD ---
PORTABLE CHEST 1 VIEW: DATE: 03/19/2020. TIME: 8:20 AM. HISTORY: Shortness of breath, pneumothorax. COMPARISON: Previous day. FINDINGS: There is a tiny residual left apical pneumothorax. Left-sided chest tube and right-sided Port-A-Cath remain in place. The mass-like opacity in the left perihilar region is again seen. The heart size is normal. The right lung is unremarkable. IMPRESSION: Tiny left apical pneumothorax. POS: OFF
--- NOTE | 2020-03-19 10:38 | PRG ---
DATE OF SERVICE: SUBJECTIVE: This morning, he is going to have Heimlich valve placed. OBJECTIVE: VITAL SIGNS: Temperature 97, pulse , respiratory rate 16, sats 100%, and blood pressure 110/65. CHEST: No wheezing. No crackles. CARDIAC: Normal S1 and S2. No gallops. ABDOMEN: No masses. LABORATORY DATA: X-ray stable. ASSESSMENT: 1. Spontaneous pneumothorax. 2. Metastatic carcinoma. 3. Chronic obstructive pulmonary disease. 4. Lung cancer. The patient appears to be stable. If his x-ray shows no worsening of the pneumothorax, he could be discharged home with hospice care. Job ID: [id number]
--- NOTE | 2020-03-19 14:53 | PRG ---
DATE OF SERVICE: 03/19/2020 Chest x-ray today showed fully expanded lung, and he has been on the Heimlich valve overnight. So he is free to be discharged home with his Heimlich valve and he can follow up with me in another week in the office or if he is on hospice, they can follow him there without an appointment with me. Job ID: [id number]
[2020-03-19] MEDS: Multivitamins, Adult 10 ML, Folic Acid 1 MG, Thiamine HCl 100 MG in Dextrose 5 %-0.45 %... IV SCH (18:44)
--- NOTE | 2020-03-19 19:19 | DIS ---
DATE OF ADMISSION: 03/08/2020 DATE OF DISCHARGE: 03/19/2020 DISCHARGE DISPOSITION: Home with hospice. FOLLOWUP: 1. Follow up with primary care physician at [facility] in 1 week. 2. Follow up with Pulmonary and Cardiovascular as scheduled. CODE STATUS: Do not resuscitate. ALLERGIES: NO KNOWN DRUG ALLERGIES. THE PATIENT WAS SEEN AND EXAMINED ON THE DAY OF DISCHARGE. DENIES ANY NEW COMPLAINTS. CHEST TUBE WAS TRANSITIONED TO HEIMLICH VALVE. DISCHARGE MEDICATIONS: 1. Prednisone 10 mg daily for 1 week. 2. Dulera 200 mcg/5 two puffs b.i.d. 3. Vitamin B12 of 1000 mcg daily. All other home medications were left unchanged. BRIEF HOSPITAL COURSE: The patient is a 69-year-old male with lung cancer, was brought into the hospital with altered mentation along with agonal respiration. His initial O2 saturation was 50%. Chest tube was placed for left-sided pneumothorax. He was started on noninvasive positive-pressure ventilation due to DNR status. He was hypothermic with temperature of 95.3 rectal with a blood pressure of 66/54 on ER admission. Please refer to the history and physical for further details. The patient was admitted to the ICU with respiratory failure due to left-sided spontaneous pneumothorax. His condition gradually improved with above measures. He was evaluated by Pulmonary as well as Cardiovascular. Later on, he was transitioned to medical floor. He continued to have persistent leak requiring extensive hospitalization. He was approved by hospice last week, however, due to chest tube, he was not discharged. Yesterday, the chest tube was transitioned to high Heimlich valve. The patient will be discharged home with hospice with Heimlich valve. Family is comfortable with taking care of the patient with Heimlich valve. They will follow up with Dr. Arredondo as an outpatient. FINAL DIAGNOSES: 1. Acute on chronic hypoxic and hypercapnic respiratory failure, requiring noninvasive positive pressure ventilation. His initial ABGs showed pH of 7.21 with pCO2 of 71.6, PO2 of 60.6 with O2 saturation 86% on noninvasive positive-pressure ventilation. 2. Left-sided spontaneous pneumothorax requiring chest tube placement. The patient is being discharged home with Heimlich valve. 3. Multiple electrolyte abnormalities including hypomagnesemia, hypokalemia. 4. Moderate protein-calorie malnutrition. 5. Cachexia due to lung cancer. 6. Chronic obstructive pulmonary disease. 7. Hypotension/shock on admission secondary to pneumothorax. 8. Toxic metabolic encephalopathy on admission. 9. Chronic anemia suspected due to nutritional deficiency. 10. Thrombocytopenia. 11. Chest X-ray on the day of discharge showed tiny left apical pneumothorax. TIME SPENT: Time coordinating the discharge of this patient was 34 minutes. Job ID: [id number]
[2020-03-19 19:33] VITALS: BP 99/65; TEMP 97.9
--- NOTE | 2020-03-20 11:40 | EKG ---
Test Reason : Blood Pressure : / mmHG Vent. Rate : 097 BPM Atrial Rate : 097 BPM P-R Int : 132 ms QRS Dur : 072 ms QT Int : 340 ms P-R-T Axes : 084 087 082 degrees QTc Int : 431 ms Poor data quality, interpretation may be adversely affected Normal sinus rhythm Biatrial enlargement Abnormal ECG Confirmed by MI WEEKS M.D. ([id number]), commissioning editor VIV AVILA ([id number]) on 03/20/2020 11:40:30 AM Referred By: Confirmed By:MI WEEKS M.D.
--- NOTE | 2020-03-22 00:35 | PQF ---
CLINICAL DOCUMENTATION CLARIFICATION FORM: Dear : Yoav Bowen Date / Time: 03/22/20 0035 Please exercise your independent, professional judgment in responding to the20 clarification form. Clinical indicators are provided on the bottom of this form for your review In your clinical opinion based on clinical findings below, can you please specify Spontaneous Pneumothorax if: Please check appropriate box(es): [ ] Primary Pneumothorax [ x ] Secondary Pneumothorax due to Lung cancer [ ] Secondary Pneumothorax due to other condition, please specify: [ ] Other diagnosis [ ] Unable to determine Physician Signature: Date/Time: For continuity of documentation, please document condition throughout progress notes and discharge summary. Thank You. To be completed by CDI/Coding staff for physician review: Present Clinical Indicators - Signs / Symptoms / Labs Results and Location in Medical Record [X] WBC 10.3, Plt count 156, Neutrophils 48.5, Lactic 5.1 Laboratory 03/07 [X] BP 92/58, Pulse 125, Resp 19, Temp 97.7 Vital Signs 03/08 [X] Chest X-ray: Left Pneumothorax Imaging Dr Rose 03/07 [X] Presented unresponsive, in acute respiratory distress and breathing bagged H&P p1 Dr Sexton 03/08 [X] Pt meets criteria for septic shock H&P p1 Dr Sexton 03/08 [X] Acute respiratory failure H&P p3 Dr Sexton 03/08 [X] hypotension/Shock on admission secondary to Pneumothorax DS p2 03/19 dr Covarrubias Present Risk Factors Results and Location in Medical Record [X] 69 year-old Male H&P p1 Dr Sexton 03/08 [X] Lung Cancer H&P p1 Dr Sexton 03/08 [X] Malnutrition H&P p1 Dr Sexton 03/08 [X] COPD H&P p1 Dr Sexton 03/08 Present Treatments Results and Location in Medical Record Chets tube insertion Order Dr Sexton 03/08 [X] IV Levophed 8 mg AUG 11 [X] IV Zosyn 3.375 m4 AUG 11 [X] IV Vancomycin 2 mg AUG 11 [X] IVF NS 1L AUG 11 [X] IV Cefepime 2 gm AUG 11 [X] BiPap Respiratory Panel 10/5 [X] Chest X-ray Imaging Dr Rose 03/07 [X] Louver Mortiser Operator Consult Consult Dr Arredondo 03/09 CDS/Industrial Furnace Fabricator Signature: Letha Romo Ava Phone #: ext [phone] Date/Time: 03/22/2020 0035 This is a permanent part of the Medical Record [facility]
--- NOTE | 2020-03-22 00:36 | PQF ---
CLINICAL DOCUMENTATION CLARIFICATION FORM: Dear : Yoav Bowen Date / Time: 03/22/20 0036 Please exercise your independent, professional judgment in responding to the20 clarification form. Clinical indicators are provided on the bottom of this form for your review Please check appropriate box(es) to clarify if the following diagnosis has been ruled in our ruled out: Sepsis [ x ] Ruled in diagnosis [ ] Continue to treat [ x ] Resolved [ ] Ruled out diagnosis [ ] Improving [ ] Cannot rule out diagnosis [ ] Other diagnosis [ ] Unable to determine Physician Signature: Date/Time: For continuity of documentation, please document condition throughout progress notes and discharge summary. Thank You. To be completed by CDI/Coding staff for physician review: Present Clinical Indicators - Signs / Symptoms / Labs Results and Location in Medical Record [X] WBC 10.3, Plt count 156, Neutrophils 48.5, Lactic 5.1 Laboratory 03/07 [X] Blood culture: No growth Microbiology 03/07 [X] BP 92/58, Pulse 125, Resp 19, Temp 97.7 Vital Signs 03/08 [X] ABX for possible sepsis ED notes p13 03/08 [X] Presented unresponsive, in acute respiratory distress and breathing bagged H&P p1 Dr Sexton 03/08 [X] Pt meets criteria for septic shock H&P p1 Dr Sexton 03/08 [X] Acute respiratory failure H&P p3 Dr Sexton 03/08 [X] hypotension/Shock on admission secondary to Pneumothorax DS p2 03/19 dr Covarrubias Present Risk Factors Results and Location in Medical Record [X] 69 year-old Male H&P p1 Dr Sexton 03/08 [X] Lung Cancer H&P p1 Dr Sexton 03/08 [X] Malnutrition H&P p1 Dr Sexton 03/08 [X] COPD H&P p1 Dr Sexton 03/08 Present Treatments Results and Location in Medical Record [X] IV Levophed 8 mg AUG 11 [X] IV Zosyn 3.375 m4 AUG 11 [X] IV Vancomycin 2 mg AUG 11 [X] IVF NS 1L AUG 11 [X] IV Cefepime 2 gm AUG 11 [X] Blood culture Microbiology 03/07 [X] BiPap Respiratory Panel 03/08 [X] Chest X-ray Imaging Dr Rose 03/07 [X] Director Security Risk Management Consult Consult Dr Arredondo 03/09 CDS/Social Media Content Manager Signature: Letha Romo Talyapuneetmelinda Phone #: ext [phone] Date/Time: 03/22/2020 0036 This is a permanent part of the Medical Record [facility]
== END 2020-03-19 21:13 | disposition hospice, home (50) | DRG 871 ==
LOC: ERS 22:31 → CCU 03-08 02:53 → T4-A 03-09 19:34
PROVIDERS: ADMIT Internal Medicine; ATTEND Internal Medicine
PROC: 3E033XZ Introduction of Vasopressor into Peripheral Vein, Percutaneous Approach (ICD-10-PCS; 2020-03-07)
PROC: 0W9B30Z Drainage of Left Pleural Cavity with Drainage Device, Percutaneous Approach (ICD-10-PCS; principal; 2020-03-08)
PROC: 5A09357 Assistance with Respiratory Ventilation, Less than 24 Consecutive Hours, Continuous Positive Airway Pressure (ICD-10-PCS; 2020-03-08)
DX: A41.9 Sepsis, unspecified organism (principal); J96.21 Acute and chronic respiratory failure with hypoxia; R57.8 Other shock; G92 Toxic encephalopathy; E43 Unspecified severe protein-calorie malnutrition; J96.22 Acute and chronic respiratory failure with hypercapnia; R65.21 Severe sepsis with septic shock; Z68.1 Body mass index [BMI] 19.9 or less, adult; R64 Cachexia; C34.90 Malignant neoplasm of unspecified part of unspecified bronchus or lung; J93.12 Secondary spontaneous pneumothorax; Z20.828 Contact with and (suspected) exposure to other viral communicable diseases; Z66 Do not resuscitate; Z51.5 Encounter for palliative care; E83.42 Hypomagnesemia; E87.6 Hypokalemia; J44.9 Chronic obstructive pulmonary disease, unspecified; D53.9 Nutritional anemia, unspecified; D69.6 Thrombocytopenia, unspecified; G20 Parkinson's disease; Z28.21 Immunization not carried out because of patient refusal; Z79.899 Other long term (current) drug therapy; Z79.51 Long term (current) use of inhaled steroids
CPT/HCPCS: 32551; 36415; 51702; 70450; 71045; 71275; 80053; 80202; 82140; 82330; 82435; 82550; 82553; 82803; 82805; 83605; 83735; 84100; 84132; 84295; 84443; 84484; 85007; 85014; 85025; 85027; 87040; 93005; 93010; 94640; 94660; 96361; 96365; 96366; 96368; 96375; 99292; J0692; J2270; J2310; J2543; J2920; J3370; J3411; J3475; J3480; J3490; J7042; J7050; J7512; J7620; Q9967; S0028; U0002